=== PATIENT | female | born 1950 | race Caucasian/White ===

== ENCOUNTER → 2016-08-30 | Outpatient (CLI) | payer BC ==
[2014-06-14 16:10] VITALS: BP 140/75
[~2016-08-30] MED LIST: ACET325T9 PO; BENZ100C PO; GUAI600T47 PO; LEVO500T59 PO; POTA20TA12 PO; PRED20TA PO
--- NOTE | 2016-08-30 15:46 | KCIC ---
History: Arthralgia, medial right knee pain, fall in February 2016. Comparison: None. Findings: AP, lateral, and oblique views of the right knee performed weightbearing. No acute fracture or dislocation is identified. There is mild narrowing of the medial joint space. Small quadriceps tendon insertional enthesophyte is seen. No erosive changes are seen. No joint effusion is identified. The distal left femur demonstrates a chondroid lesion which measures about 4.5 cm in maximum dimension. Impression: 1. No acute osseous abnormality identified. 2. Mild medial compartment degeneration. 3. Chondroid lesion involving the distal left femur measuring about 4.5 cm in maximum dimension. 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 If there is focal pain, then bone scan could be performed to evaluate for more aggressive process. If no focal pain, then follow-up radiographs could be performed in 6-12 months to ensure stability. Electronically signed by: Charlie Carbajal MD (08/30/2016 3:42 PM) [id number]
== END | disposition home or self-care (01) ==
LOC: KCIC 15:15
PROVIDERS: ATTEND Internal Medicine Rheumatology
DX: M25.561 Pain in right knee (principal)
CPT/HCPCS: 73562

== ENCOUNTER → 2016-11-19 | Outpatient (CLI) | payer BC ==
[2014-06-14 16:10] VITALS: BP 140/75
--- NOTE | 2016-11-20 09:14 | KCIC ---
MR of the right knee Indication: Arthralgia. Right knee pain after a fall in February. Pain is medial. Technique: The standard multiplanar sequences are obtained. COMPARISON: Radiographs August 30, 2016 Findings: Medial meniscus: Small, blunted and distorted compatible with a degenerative tear. Lateral meniscus: Minimal blunting of free margin lateral meniscus on the single coronal slice, compatible with a possible tear, but if so it is very small. Anterior cruciate ligament: Intact Posterior cruciate ligament: Intact Medial collateral ligament: Intact. Iliotibial band: Intact. Posterolateral structures: Fibular collateral ligament, biceps tendon and popliteus tendon are intact. Extensor mechanism: Intact. Fluid: Small joint effusion. Articular cartilage -patellofemoral joint:Intact -medial compartment: Severe chondromalacia at the central weightbearing medial femoral condyle. Mild subchondral edema and cystic change. -lateral compartment:Intact Bones: Geographic bone lesion at the distal femoral meta-epiphysis, centered at the growth plate scar and extending to the roof of the intercondylar notch. Measures 3.5 cm diameter. This demonstrates a lobulated margin and is typical for a chondroid lesion in location and appearance. There is a smaller similar lesion located just lateral to this as well. No aggressive bone destruction. No evidence of acute fracture. Soft tissue: Mild anterior subcutaneous edema. Impression: 1. Medial meniscal tear. 2. Possible very small lateral meniscal tear, with blunting on a single coronal slice. 3. Primary osteoarthritis, particularly at the medial femoral condyle. 4. There are 2 chondroid lesions at the distal femur, most typically represent enchondromas, and without associated aggressive features. As stated in the recommendation provided in the radiographic report of August 30, 2016, consider obtaining a nuclear medicine bone scan if there is thought to be focal pain attributable to this lesion. Otherwise, radiographic follow-up could be obtained. Electronically signed by: Charlie Zacarias MD (11/20/2016 9:11 AM) [facility]
== END | disposition home or self-care (01) ==
LOC: KCIC MRI 16:35
PROVIDERS: ATTEND Internal Medicine Rheumatology
DX: S83.241D Other tear of medial meniscus, current injury, right knee, subsequent encounter (principal); M17.11 Unilateral primary osteoarthritis, right knee; X58.XXXD Exposure to other specified factors, subsequent encounter
CPT/HCPCS: 73721

== ENCOUNTER → 2018-01-06 | Day surgery (SDC) | payer BC ==
[~2018-01-06] MED LIST changes: +IV RINGERS,LACTATED 1000ML 1,000 ML IV SCH; +LIDOCAINE 1% PF 2 ML VIAL. ID PRN; +MIDAZOLAM HCL/PF 2 MG/2 ML VIAL. IV PRN; +PROPOFOL 40 ML IV ONE; +fentaNYL PF VIAL 100 MCG/2 ML VIAL IV PRN
--- NOTE | 2018-01-06 08:51 | PDOC1 ---
HISTORY & PHYSICAL H&P Annabel Messina [id number] 1950 12/24/2017 03:30 PM 02/24 [facility], [facility] [address] [place], [place] [id number] . [phone] Patient: Annabel Messina Date of : 1950 Date: 12/24/2017 3:30 PM Visit Type: Consult This 67 year old female presents for Screening colonoscopy. History of Present Illness: 1. Screening colonoscopy No prior screening. Risk Factors: h/o colon polyp. Pertinent negatives include abdominal pain, change in bowel habits, change in stool caliber, constipation, decreased appetite, diarrhea, melena, nausea, rectal bleeding, vomiting, weight gain and weight loss. Additional information: No family history of Crohn's/colitis, Patient has family history of colon cancer, No NSAID /ASA use and Last colonoscopy 5 yrs ago. INTAKE COMMENTS: Intake Comments: patient states she is here for a colonoscopy PROBLEM LIST: Problem Description Onset Date Chronic Clinical Status Notes Sleep apnea 01/08/2012 Y Mapped from [facility] Chronic Conditions table on 2013 by the ICD9 to SNOMED Bulk Mapping Utility. The mapped diagnosis code was Sleep apnea, 780.57, added by Clarice Doss, with responsible provider Clarice Doss MD MD. Onset date 01/08/2012; last addressed on 01/08/2013. Sarcoidosis 01/08/2012 Y Mapped from [facility] Chronic Conditions table on 2013 by the ICD9 to SNOMED Bulk Mapping Utility. 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 Onset date 01/08/2012; last addressed on 01/08/2013. Hyperlipidemia 03/09/2013 Y Mapped from [facility] Chronic Conditions table on 2013 by the ICD9 to SNOMED Bulk Mapping Utility. The mapped diagnosis code was Other and unspecified hyperlipidemia, 272.4, added by Clarice Doss, with responsible provider Clarice Doss MD MD. Onset date 03/09/2013. Benign essential hypertension 03/09/2013 Y Mapped from [facility] Chronic Conditions table on 09/13/2013 by the ICD9 to SNOMED Bulk Mapping Utility. The mapped diagnosis code was Hypertension, Benign, 401.1, added by Clarice Doss, with responsible provider Clarice Doss MD MD. Onset date 03/09/2013. Arm paresthesia, right 03/21/2015 Osteopenia 05/03/2014 GERD (gastroesophageal reflux disease) 05/03/2014 Cervical disc disease 03/08/2015 Cervical radiculopathy at C5 03/08/2015 Full examination performed 01/08/2012 Y Mapped from [facility] Chronic Conditions table on 03/23/2014 by Nomi العراقي. The mapped diagnosis code was Annual physical exam,V70.0, added by Clarice Doss , with responsible provider Clarice Doss MD MD. Onset date 01/08/2012; last addressed on 01/08/2013. DDD (degenerative disc disease), cervical 03/21/2015 PAST MEDICAL/SURGICAL HISTORY (Detailed) Disease/disorder Onset Date Management Date Comments Sarcoidosis 2009 rt rotator cuff tear 2005 Appendectomy 2011 Cholecystectomy 2009 Breast biopsy 2001 Hysterectomy 1995 Family History (Detailed) Relationship Family Member Name Age at Condition Onset Age Cause of Family history of Hypertension N Family history of Cancer, colon N Family history of Hyperlipidemia N Social History: (Detailed) The patient is right-handed. Preferred language is Montserratian. MARITAL STATUS/FAMILY/SOCIAL SUPPORT Currently unknown. Tobacco use status: Never smoked tobacco. Smoking status: Never smoker. TOBACCO CESSATION INFORMATION Date Counseled By Order Status Description Code Tobacco Cessation Information 01/08/2012 Elizabeth Prado Tobacco cessation counseling completed Tobacco cessation counseling TOBACCO/VAPING EXPOSURE There is passive smoke exposure. ALCOHOL There is no history of alcohol use. CAFFEINE The patient does not use caffeine. HOME ENVIRONMENT/SAFETY Home heating is gas. There is not a pool/spa at home. Uses seat belts. Medications (active prior to today) Medication Name Sig Description Start Date Stop Date Refilled Rx Elsewhere meloxicam 7.5 mg tablet take 1 tablet by ORAL route 2 times every day 201712/12/2017 N Lotrisone 1 %-0.05 % topical cream apply by topical route 2 times every day for 2 weeks to the affected and surrounding areas of skin in the morning and evening 12/12/2017 12/25/2017 12/12/2017 N Medication Reconciliation Medications reconciled today. Medication Reviewed Adherence Medication Name Sig Desc Elsewhere Status taking as directed meloxicam 7.5 mg tablet take 1 tablet by ORAL route 2 times every day N Verified taking as directed Lotrisone 1 %-0.05 % topical cream apply by topical route 2 times every day for 2 weeks to the affected and surrounding areas of skin in the morning and evening N Verified taking as directed meclizine 25 mg tablet take 1 tablet by oral route 3 times every day as needed N Verified Medications (Added, Continued or Stopped today) Start Date Medication Directions PRN Status PRN Reason Instruction Stop Date 12/12/2017 Lotrisone 1 %-0.05 % topical cream apply by topical route 2 times every day for 2 weeks to the affected and surrounding areas of skin in the morning and evening N 12/25/2017 12/24/2017 meclizine 25 mg tablet take 1 tablet by oral route 3 times every day as needed N 12/12/2017 meloxicam 7.5 mg tablet take 1 tablet by ORAL route 2 times every day N Allergies: Ingredient Reaction (Severity) Medication Name Comment NO KNOWN ALLERGIES Review of Systems System Neg/Pos Details Constitutional Negative Chills, Fever, Malaise, Weight gain and Weight loss. ENMT Negative Sore throat. Eyes Negative Double vision. Respiratory Negative Dyspnea and Wheezing. Cardio Negative Chest pain and Irregular heartbeat/palpitations. GI Positive See HPI. GI Negative Abdominal pain, Change in bowel habits, Change in stool caliber, Constipation, Decreased appetite, Diarrhea, Melena, Nausea, See HPI, Rectal bleeding and Vomiting. Negative Dysuria and Hematuria. Endocrine Negative Cold intolerance and Heat intolerance. Psych Negative Anxiety. Integumentary Negative Hives and Rash. MS Negative Joint pain. Aurelio/Lymph Negative Easy bleeding and Easy bruising. Allergic/Immuno Negative Food allergies. Vital Signs Time BP mm/Hg Pulse /min Resp /min Temp F Ht ft Ht in Ht cm Wt lb Wt kg BMI kg/ m2 BSA m2 O2 Sat% 3:28 PM 126/62 117 14 98.4 5.0 5.50 166.37 262.00 118.841 42.94 2.34 91 Measured By Time Measured by 3:28 PM Ivda Swygert PHYSICAL EXAM: Exam Findings Details Constitutional Normal Well developed. Eyes Normal Conjunctiva - Right: Normal, Left: Normal. Sclera - Right: Normal, Left: Normal. Nasopharynx Normal Lips/teeth/gums - Normal. Neck Exam Normal Inspection - Normal. Thyroid gland - Normal. Respiratory Normal Inspection - Normal. Auscultation - Normal. Cardiovascular Normal Regular rate and rhythm. No murmurs, gallops, or rubs. Abdomen Normal Inspection - Normal. Anterior palpation - No guarding. No abdominal tenderness. No hepatic enlargement. No spleen enlargement. No hernia. No Ascites. Skin Normal Inspection - Normal. Extremity Normal No edema. Psychiatric Normal Orientation - Oriented to time, place, person & situation. Appropriate mood and affect. Assessment/Plan # Detail Type Description 1. Assessment Family history of colon cancer (Z80.0). Patient Plan Await colonoscopy. 2. Assessment History of colon polyps (Z86.010). Patient Plan schedule colonoscopy at Active Patient Care Team Members Name Contact Agency Type Support Role Relationship Active Date Inactive Date Specialty Clarice Doss MD Patient provider PCP Internal Med Document Electronically signed: Tee Rodriguez MD 12/24/2017 04:16 PM Document generated by: Tee Rodrigeuz 12/24/2017 Dipika Villar MD, Family Practice; Charlie Stinson MD Internal Medicine; Clarice Doss MD, Internal Medicine; Concepcion Rodriguez MD Internal Medicine; Tee Rodriguez MD, Gastroenterology; Shiva Richards MD, Rheumatology, Ruthann Haresh LITTLEJOHN ------ 01/06/18 Patient seen and examined. No change in H&P. TEE RODRIGUEZ MD Jan 06, 2018 08:51
[2018-01-06 09:45] VITALS: BP 125/60
== END | disposition home or self-care (01) ==
LOC: SURG 08:24
PROVIDERS: ATTEND Internal Medicine Gastroenterology
DX: Z12.11 Encounter for screening for malignant neoplasm of colon (principal); K57.30 Diverticulosis of large intestine without perforation or abscess without bleeding; I10 Essential (primary) hypertension; G47.30 Sleep apnea, unspecified; E78.5 Hyperlipidemia, unspecified; K21.9 Gastro-esophageal reflux disease without esophagitis; M85.80 Other specified disorders of bone density and structure, unspecified site; M50.122 Cervical disc disorder at C5-C6 level with radiculopathy; Z90.49 Acquired absence of other specified parts of digestive tract; Z90.710 Acquired absence of both cervix and uterus; Z98.890 Other specified postprocedural states; Z82.49 Family history of ischemic heart disease and other diseases of the circulatory system; Z83.49 Family history of other endocrine, nutritional and metabolic diseases; Z79.899 Other long term (current) drug therapy; Z86.010 Personal history of colon polyps; Z80.0 Family history of malignant neoplasm of digestive organs
CPT/HCPCS: 45378; J2704

== ENCOUNTER → 2018-08-28 | Outpatient (CLI) | payer BC ==
[2018-01-06 09:45] VITALS: BP 125/60
[~2018-08-28] MED LIST changes: +IOHEXOL 300 MG/ML 100ML VIAL. IV ONE; -IV RINGERS,LACTATED 1000ML 1,000 ML IV SCH; -LIDOCAINE 1% PF 2 ML VIAL. ID PRN; -MIDAZOLAM HCL/PF 2 MG/2 ML VIAL. IV PRN; -PROPOFOL 40 ML IV ONE; -fentaNYL PF VIAL 100 MCG/2 ML VIAL IV PRN
--- NOTE | 2018-08-28 13:35 | RAD ---
Examination: CT CHEST W/CONTRAST History: Sarcoidosis Comparison/Correlation: 12/04/2015 CT chest without contrast Findings: Axial images of chest were obtained without contrast. Sagittal and coronal reformatted images are provided. Linear scarring involving the lingula and anterior left lung base is present similar to the prior exam. No suspicious pulmonary nodules or masses. Calcified granuloma involves the lateral left lung base. Several noncalcified nodules bilaterally are present measuring less than 0.3 cm. No suspicious new nodule. Multiple right paratracheal and left perihilar lymph nodes are present and borderline in size. Subcarinal lymph node measuring up to 1.5 cm thorax diameter is stable. No infiltrate or pleural effusion. Small hiatal hernia is present. Cholecystectomy is noted. Diverticulosis is present. Left renal superior pole lesion which is too small to characterize probably representing a cyst is present measuring less than 1 cm diameter. Impression: No change in thoracic lymph nodes in this patient with known history of sarcoidosis. No suspicious infiltrate. No suspicious pulmonary nodule in the interval. Hiatal hernia PQRS Compliance Statement: One or more of the following individualized dose reduction techniques were utilized for this examination: 1. Automated exposure control 2. Adjustment of the mA and/or kV according to patient size 3. Use of iterative reconstruction technique Electronically signed by: Ryan Dias MD (08/28/2018 1:31 PM) [facility]
== END | disposition home or self-care (01) ==
LOC: CT 10:57
PROVIDERS: ATTEND Internal Medicine Critical Care Medicine
DX: K44.9 Diaphragmatic hernia without obstruction or gangrene (principal); K57.90 Diverticulosis of intestine, part unspecified, without perforation or abscess without bleeding; J84.10 Pulmonary fibrosis, unspecified; J98.4 Other disorders of lung; N28.89 Other specified disorders of kidney and ureter; D86.9 Sarcoidosis, unspecified; Z88.5 Allergy status to narcotic agent; Z90.49 Acquired absence of other specified parts of digestive tract
CPT/HCPCS: 71260; Q9967

== ENCOUNTER 2020-01-27 10:09 | Inpatient (IN) | payer BC, MEDICARE ==
[~2020-01-27] VITALS: Ht 170.2 cm; Wt 109.9 kg
[~2020-01-27 10:09] MED LIST changes: -IOHEXOL 300 MG/ML 100ML VIAL. IV ONE
[2020-01-27] MEDS ORDERED: DEXAMETHASONE SOD PHOS 4 MG/ML VIAL IVP ONE (11:00)
[2020-01-27] MEDS ORDERED: cefTRIAXone IV Push 1 GM VIAL. IVP ONE (11:00)
[2020-01-27] MEDS ORDERED: ACETAMINOPHEN 500 MG TABLET PO ONE (11:00)
--- NOTE | 2020-01-27 11:17 | RAD ---
CHEST AP ONLY History: Reason: cough, covid? / Spl. Instructions: / History: Comparison: June 14, 2014 Findings: Ill-defined mid and bibasilar opacities. Low lung volumes. No pleural effusion. No pneumothorax. Enlarged cardiac size, unchanged. Impression: 1. Ill-defined bilateral pulmonary opacities, may represent atelectasis or infiltrates including viral pneumonia. Recommend follow-up. 2. Enlarged cardiac size, unchanged. Electronically signed by: El Sanchez DO (01/27/2020 11:10 AM) [id number]
[2020-01-27 12:00] LABS: BASO % 0 % (0-3); EOS % 0 % (0-3); HEMATOCRIT 39.7 % (36.0-47.0); HEMOGLOBIN 13.1 g/dL (12.0-15.5); LYMPH # 0.8 x10^3/uL (1.0-4.8); LYMPH % 13 % (24-48); MEAN CORPUSCULAR HEMOGLOBIN 28 pg (25-35); MEAN CORPUSCULAR HGB CONC 33 g/dL (31-37); MEAN CORPUSCULAR VOLUME 85 fL (79-100); MONO # 0.6 x10^3/uL (0.0-1.1); MONO % 10 % (0-9); NEUT # 4.9 x10^3/uL (1.8-7.7); NEUT % 77 % (31-73); PLATELET COUNT 161 x10^3/uL (140-400); RED CELL DISTRIBUTION WIDTH 14.3 % (11.5-14.5); WHITE BLOOD COUNT 6.4 x10^3/uL (4.0-11.0)
--- NOTE | 2020-01-27 12:03 | EKG ---
[facility] [address] [place] [address] Test Date: 2020-01-27 Test Time: 10:31:23 Pat Name: KENDALL CABRERA Department: Room: Gender: F Clinical Laboratory Technologist: : 1950 Requested By: ALTHEA ANGUIANO Order Number: [id number] Reading MD: Measurements Intervals [place] Rate: 99 P: 59 [place]: 144 QRS: -18 QRSD: 84 T: 14 QT: 386 QTc: 501 Interpretive Statements SINUS RHYTHM LEFTWARD AXIS LOW LIMB LEAD VOLTAGE QRS(T) CONTOUR ABNORMALITY CONSISTENT WITH INFERIOR INFARCT AGE UNDETERMINED ST ABNORMALITY, POSSIBLE LATERAL SUBENDOCARDIAL INJURY ABNORMAL ECG RI6.01 No previous ECG available for comparison
[2020-01-27 12:15] LABS: CALCIUM 8.7 mg/dL (8.5-10.1); CREATININE 0.9 mg/dL (0.6-1.0); GFR 62.5; POTASSIUM 3.2 mmol/L (3.5-5.1)
[2020-01-27 12:21] LABS: ALBUMIN 3.4 g/dL (3.4-5.0); C-REACTIVE PROTEIN 24.2 mg/L (0-3.3); TOTAL BILIRUBIN 0.4 mg/dL (0.2-1.0); TOTAL PROTEIN 6.9 g/dL (6.4-8.2)
--- NOTE | 2020-01-27 15:50 | ED.ADGEN ---
Past Medical History Past Medical History: Other Additional Past Medical Histor: Sarcoidosis Past Surgical History: Appendectomy, Cholecystectomy, , Hysterectomy, Other Additional Past Surgical Histo: Rotator Cuff, Finger Smoking Status: Never Smoker Alcohol Use: Rarely Drug Use: None General Adult EDM: Chief Complaint: SHORTNESS OF BREATH HPI: HPI: Patient is a 69-year-old female who presents to the emergency room with known coronavirus. Patient was diagnosed over weekend. She has been on steroids and doxycycline for the last several days. She has had increased cough and shortness of breath over the last 24 hours. She is now having a difficult time getting around and catching her breath. She states the cough causes chest pain that feels like aching. She has been having fevers at home. Review of Systems: Review of Systems: Complete ROS is negative unless otherwise documented in HPI Current Medications: Current Medications Medications (Trade) Dose Ordered Sig/Phil Start Time Stop Time Status Last Admin Dose Admin Acetaminophen (Tylenol) 1,000 mg 1X ONCE 01/27/20 11:00 01/27/20 11:01 DC 01/27/20 11:51 1,000 MG Ceftriaxone Sodium (Rocephin) 1 gm 1X ONCE 01/27/20 11:00 01/27/20 11:01 DC 01/27/20 11:51 1 GM Dexamethasone Sodium Phosphate (Decadron) 10 mg 1X ONCE 01/27/20 11:00 01/27/20 11:01 DC 01/27/20 11:51 10 MG Allergies: Allergies: Allergies Coded Allergies Type Severity Reaction Last Updated Verified hydrocodone Allergy Intermediate RASH 01/06/18 Yes Physical Exam: PE: General: Awake, alert, ill-appearing. Well Nourished, well hydrated. Cooperative HEENT: Atraumatic, EOMI, PERRL, airway patent, moist oral mucosa Neck: Supple, trachea midline Respiratory: Decreased breath sounds bilaterally, crackles in the right base, normal effort CV: RRR, no murmur, cap refill <2 GI: Soft, nondistended, nontender, no masses MSK: No obvious deformities Skin: Warm, dry, intact Neuro: A&O x3, speech NL, sensory and motor grossly intact, no focal deficits Psych: Normal affect, normal mood, not suicidal or homicidal Current Patient Data: Labs: Laboratory Tests Test 12/3/20 11:31 White Blood Count 6.4 x10^3/uL (4.0-11.0) Red Blood Count 4.70 x10^6/uL (3.50-5.40) Hemoglobin 13.1 g/dL (12.0-15.5) Hematocrit 39.7 % (36.0-47.0) Mean Corpuscular Volume 85 fL (79-100) Mean Corpuscular Hemoglobin 28 pg (25-35) Mean Corpuscular Hemoglobin Concent 33 g/dL (31-37) Red Cell Distribution Width 14.3 % (11.5-14.5) Platelet Count 161 x10^3/uL (140-400) Neutrophils (%) (Auto) 77 % (31-73) H Lymphocytes (%) (Auto) 13 % (24-48) L Monocytes (%) (Auto) 10 % (0-9) H Eosinophils (%) (Auto) 0 % (0-3) Basophils (%) (Auto) 0 % (0-3) Neutrophils # (Auto) 4.9 x10^3/uL (1.8-7.7) Lymphocytes # (Auto) 0.8 x10^3/uL (1.0-4.8) L Monocytes # (Auto) 0.6 x10^3/uL (0.0-1.1) Eosinophils # (Auto) 0.0 x10^3/uL (0.0-0.7) Basophils # (Auto) 0.0 x10^3/uL (0.0-0.2) D-Dimer (Aide) 1.05 ug/mlFEU (0.00-0.50) H Sodium Level 142 mmol/L (136-145) Potassium Level 3.2 mmol/L (3.5-5.1) L Chloride Level 103 mmol/L (98-107) Carbon Dioxide Level 26 mmol/L (21-32) Anion Gap 13 (6-14) Blood Urea Nitrogen 14 mg/dL (7-20) Creatinine 0.9 mg/dL (0.6-1.0) Estimated GFR (Cockcroft-Gault) 62.5 BUN/Creatinine Ratio 16 (6-20) Glucose Level 92 mg/dL (70-99) Calcium Level 8.7 mg/dL (8.5-10.1) Total Bilirubin 0.4 mg/dL (0.2-1.0) Aspartate Amino Transferase (AST) 82 U/L (15-37) H Alanine Aminotransferase (ALT) 152 U/L (14-59) H Alkaline Phosphatase 79 U/L (46-116) Lactate Dehydrogenase 238 U/L (81-234) H Creatine Kinase 321 U/L (26-192) H Troponin I Quantitative < 0.017 ng/mL (0.000-0.055) C-Reactive Protein, Quantitative 24.2 mg/L (0-3.3) H FH-Fxr-V-Type Natriuretic Peptide 46 pg/mL (0-124) Total Protein 6.9 g/dL (6.4-8.2) Albumin 3.4 g/dL (3.4-5.0) Albumin/Globulin Ratio 1.0 (1.0-1.7) Laboratory Tests 01/27/20 11:31 Laboratory Tests 01/27/20 11:31 Vital Signs: Vital Signs Date Time Temp Pulse Resp B/P (MAP) Pulse Ox O2 Delivery O2 Flow Rate FiO2 01/27/20 12:50 97 146/70 (95) 95 Nasal Cannula 2.0 01/27/20 11:50 18 01/27/20 10:09 102.7 102.7 EKG: EKG: [] Heart Score: Risk Factors: Risk Factors: DM, Current or recent (<one month) smoker, HTN, HLP, family history of CAD, obesity. Risk Scores: Score 0 - 3: 2.5% MACE over next 6 weeks - Discharge Home Score 4 - 6: 20.3% MACE over next 6 weeks - Admit for Clinical Observation Score 7 - 10: 72.7% MACE over next 6 weeks - Early Invasive Strategies Radiology/Procedures: Radiology/Procedures: [] Course & Med Decision Making: Course & Med Decision Making Pertinent Labs and Imaging studies reviewed. (See chart for details) Patient is a 69-year-old female who presents to the emergency room with cough, shortness of breath, hypoxia. At this time there is concern for the novel coronavirus 19. Patient's risk factors include age, obesity. Risk stratifying work-up was ordered including chest x-ray, d-dimer, CPK, CRP, LDH, troponin, fe rritin, CBC, CMP. At this time, patients labs, vitals, and exam are significant for hypoxia. Due to patient's risk and clinical picture, they will need to be admitted at this time. IVFs will be limited due to concern for fluid overload in COVID-19 patients. Patient will be given empiric antibiotics due to infiltrates and risk of co-bacterial infection. Further treatment will be dictated by the inpatient team. Dragon Disclaimer: Dragon Disclaimer: This electronic medical record was generated, in whole or in part, using a voice recognition dictation system. Departure Departure Impression: Primary Impression: Community acquired pneumonia Additional Impression: Coronavirus infection Disposition: ADMITTED INPT THIS HOSP Condition: STABLE Referrals: WALDO KUMAR MD (PCP) Scripts Dexamethasone (Decadron) 4 Mg Tablet 4 MG PO [id number] for steroid for 7 Days, #7 TAB Prov: WALDO KUMAR MD 02/02/20 Doxycycline Hyclate (DOXYCYCLINE HYCLATE) 100 Mg Tablet 100 MG PO BID for pneumonia for 7 Days, #14 TAB Prov: WALDO KUMAR MD 02/02/20 Problem Qualifiers ALTHEA ANGUIANO MD Jan 27, 2020 15:49
--- NOTE | 2020-01-27 16:55 | PDOC ---
PULMONARY PROGRESS NOTES DATE: 01/27/20 TIME: 16:54 Vitals Vital Signs Date Time Temp Pulse Resp B/P (MAP) Pulse Ox O2 Delivery O2 Flow Rate FiO2 01/27/20 12:50 97 146/70 (95) 95 Nasal Cannula 2.0 01/27/20 11:50 18 01/27/20 10:09 102.7 102.7 General: Alert Lungs: Clear Cardiovascular: S1, S2 Abdomen: Soft, Non-tender Extremities: No Edema Labs Laboratory Tests Test 01/27/20 11:31 White Blood Count 6.4 x10^3/uL (4.0-11.0) Red Blood Count 4.70 x10^6/uL (3.50-5.40) Hemoglobin 13.1 g/dL (12.0-15.5) Hematocrit 39.7 % (36.0-47.0) Mean Corpuscular Volume 85 fL (79-100) Mean Corpuscular Hemoglobin 28 pg (25-35) Mean Corpuscular Hemoglobin Concent 33 g/dL (31-37) Red Cell Distribution Width 14.3 % (11.5-14.5) Platelet Count 161 x10^3/uL (140-400) Neutrophils (%) (Auto) 77 % (31-73) Lymphocytes (%) (Auto) 13 % (24-48) Monocytes (%) (Auto) 10 % (0-9) Eosinophils (%) (Auto) 0 % (0-3) Basophils (%) (Auto) 0 % (0-3) Neutrophils # (Auto) 4.9 x10^3/uL (1.8-7.7) Lymphocytes # (Auto) 0.8 x10^3/uL (1.0-4.8) Monocytes # (Auto) 0.6 x10^3/uL (0.0-1.1) Eosinophils # (Auto) 0.0 x10^3/uL (0.0-0.7) Basophils # (Auto) 0.0 x10^3/uL (0.0-0.2) D-Dimer (Aide) 1.05 ug/mlFEU (0.00-0.50) Sodium Level 142 mmol/L (136-145) Potassium Level 3.2 mmol/L (3.5-5.1) Chloride Level 103 mmol/L (98-107) Carbon Dioxide Level 26 mmol/L (21-32) Anion Gap 13 (6-14) Blood Urea Nitrogen 14 mg/dL (7-20) Creatinine 0.9 mg/dL (0.6-1.0) Estimated GFR (Cockcroft-Gault) 62.5 BUN/Creatinine Ratio 16 (6-20) Glucose Level 92 mg/dL (70-99) Calcium Level 8.7 mg/dL (8.5-10.1) Total Bilirubin 0.4 mg/dL (0.2-1.0) Aspartate Amino Transf (AST/SGOT) 82 U/L (15-37) Alanine Aminotransferase (ALT/SGPT) 152 U/L (14-59) Alkaline Phosphatase 79 U/L (46-116) Lactate Dehydrogenase 238 U/L (81-234) Creatine Kinase 321 U/L (26-192) Troponin I Quantitative < 0.017 ng/mL (0.000-0.055) C-Reactive Protein, Quantitative 24.2 mg/L (0-3.3) ME-Ufd-C-Type Natriuretic Peptide 46 pg/mL (0-124) Total Protein 6.9 g/dL (6.4-8.2) Albumin 3.4 g/dL (3.4-5.0) Albumin/Globulin Ratio 1.0 (1.0-1.7) Laboratory Tests Test 01/27/20 11:31 White Blood Count 6.4 x10^3/uL (4.0-11.0) Red Blood Count 4.70 x10^6/uL (3.50-5.40) Hemoglobin 13.1 g/dL (12.0-15.5) Hematocrit 39.7 % (36.0-47.0) Mean Corpuscular Volume 85 fL (79-100) Mean Corpuscular Hemoglobin 28 pg (25-35) Mean Corpuscular Hemoglobin Concent 33 g/dL (31-37) Red Cell Distribution Width 14.3 % (11.5-14.5) Platelet Count 161 x10^3/uL (140-400) Neutrophils (%) (Auto) 77 % (31-73) Lymphocytes (%) (Auto) 13 % (24-48) Monocytes (%) (Auto) 10 % (0-9) Eosinophils (%) (Auto) 0 % (0-3) Basophils (%) (Auto) 0 % (0-3) Neutrophils # (Auto) 4.9 x10^3/uL (1.8-7.7) Lymphocytes # (Auto) 0.8 x10^3/uL (1.0-4.8) Monocytes # (Auto) 0.6 x10^3/uL (0.0-1.1) Eosinophils # (Auto) 0.0 x10^3/uL (0.0-0.7) Basophils # (Auto) 0.0 x10^3/uL (0.0-0.2) D-Dimer (Aide) 1.05 ug/mlFEU (0.00-0.50) Sodium Level 142 mmol/L (136-145) Potassium Level 3.2 mmol/L (3.5-5.1) Chloride Level 103 mmol/L (98-107) Carbon Dioxide Level 26 mmol/L (21-32) Anion Gap 13 (6-14) Blood Urea Nitrogen 14 mg/dL (7-20) Creatinine 0.9 mg/dL (0.6-1.0) Estimated GFR (Cockcroft-Gault) 62.5 BUN/Creatinine Ratio 16 (6-20) Glucose Level 92 mg/dL (70-99) Calcium Level 8.7 mg/dL (8.5-10.1) Total Bilirubin 0.4 mg/dL (0.2-1.0) Aspartate Amino Transf (AST/SGOT) 82 U/L (15-37) Alanine Aminotransferase (ALT/SGPT) 152 U/L (14-59) Alkaline Phosphatase 79 U/L (46-116) Lactate Dehydrogenase 238 U/L (81-234) Creatine Kinase 321 U/L (26-192) Troponin I Quantitative < 0.017 ng/mL (0.000-0.055) C-Reactive Protein, Quantitative 24.2 mg/L (0-3.3) QW-Fzy-D-Type Natriuretic Peptide 46 pg/mL (0-124) Total Protein 6.9 g/dL (6.4-8.2) Albumin 3.4 g/dL (3.4-5.0) Albumin/Globulin Ratio 1.0 (1.0-1.7) Medications Active Scripts Medications Dose Route/Sig Max Daily Dose Days Date Category Tylenol (Acetaminophen) 325 Mg Tablet 650 Mg PO PRN Q6HRS PRN 06/14/14 Rx Impression . Full note dictated Acute hypoxemic respiratory failure secondary to COVID-19 viral pneumonia See orders Spoke with pharmacy will initiate remdesNEISHA Villanueva MD Jan 27, 2020 16:55
--- NOTE | 2020-01-27 17:11 | CONS ---
DATE OF CONSULTATION: 01/27/2020 ATTENDING PHYSICIAN: Dr. Doss. REASON FOR CONSULTATION: The patient is seen in pulmonary consultation at the request of Dr. Doss for acute hypoxemic respiratory distress, abnormal x-ray, positive COVID-19. HISTORY OF PRESENT ILLNESS: The patient is a 69-year-old that was seen in the urgent care center several days ago, she had some fever, increasing shortness of breath. She was tested positive. She was given some prednisone, doxycycline and cough suppressants. The patient failed outpatient treatment. She presented to the Emergency Room with increasing shortness of breath and oxygen requirement. She normally does not wear oxygen. She was seen in the Emergency Department. She denies any known exposures. PAST MEDICAL HISTORY: Remarkable for sarcoid, which has been pretty much under control for a prolonged period of time. She was last seen in the office by my partner, Dr. Vasquez. She has had previous biopsy-proven sarcoid. She has had obstructive sleep apnea, uses CPAP at home. Otherwise, no other past medical history. PAST SURGICAL HISTORY: Previous biopsy for a sarcoid, laparoscopic cholecystectomy, breast biopsy, rotator cuff repair. ALLERGIES: HYDROCODONE CAUSES NAUSEA AND EMESIS. SOCIAL HISTORY: She quit tobacco in 1983. FAMILY HISTORY: No family history of lung disorders. CURRENT MEDICATION: List was reviewed. REVIEW OF SYSTEMS: As indicated above, otherwise, a 10-point system was reviewed and negative. CONSTITUTIONAL: Positive for fever. EYES: No change in visual acuity. HENT: No nasal congestion or sore throat. PULMONARY: As indicated above. CARDIOVASCULAR: No chest pain. No pressure. GASTROINTESTINAL: No nausea, vomiting, diarrhea. GENITOURINARY: No dysuria or frequency. MUSCULOSKELETAL: No localized muscle aches or joint pains. SKIN: No new skin rashes. NEUROLOGIC: No headaches, diplopia or blurred vision. PHYSICAL EXAMINATION: The patient was seen during the COVID-19 pandemic. She was seen in the Emergency Department. On visual inspection and examination temperature was 102.7. She was in no significant respiratory distress. No paroxysmal breathing pattern. ABDOMEN: Obese. NEUROLOGICAL: The patient was awake, alert, following commands. LABORATORY DATA: Reviewed. White count was normal with lymphopenia. Electrolytes were noted. Potassium was low. AST and ALT were elevated. LDH was elevated. Troponin was not elevated. C-reactive protein was elevated. Chest x-ray was reviewed. There is bilateral pulmonary infiltrates. There is cardiomegaly. IMPRESSION: 1. Acute hypoxemic respiratory failure secondary to COVID-19 viral pneumonia. 2. COVID-19 viral pneumonia, the patient failed outpatient treatment, now hypoxic, increasing symptoms. 3. Abnormal x-ray, possible bacterial pneumonia, gram-positive and gram-negative. 4. Morbid obesity. 5. History of sarcoid. 6. Obstructive sleep apnea. 7. Fever secondary to above. PLAN: 1. We will initiate remdesivir. 2. Continue steroids. 3. Empiric antibiotics. 4. DVT prophylaxis. 5. Oxygen supplementation. I do appreciate the privilege in sharing in the patient's care. Total cumulative critical care time of 40 minutes from 4:06 p.m. to 4:46 p.m. NEISHA MORALES MD DR: LORA/ayesha JOB#: [id number] / [id number]
[2020-01-27] MEDS ORDERED: POTASSIUM CHLORIDE 20 MEQ TABLET.ER. PO ONE (18:00)
[2020-01-27] MEDS ORDERED: REMDESIVIR LOAD in IV NORMAL SALINE 250ML TV IV ONE (18:00)
[2020-01-27] MEDS: IV NORMAL SALINE 1000ML BAG 1,000 ML IV SCH (18:18)
[2020-01-27] MEDS: ZINC SULFATE 220 MG CAPSULE. PO SCH (18:19)
[2020-01-27] MEDS: ASCORBIC ACID 1,000 MG TABLET PO SCH (18:20)
[2020-01-27] MEDS: IPRATROPIUM/ALBUTEROL 20/100mcg/INH INHALER. INH SCH (18:26)
--- NOTE | 2020-01-27 20:00 | NUR ---
Admit from ER. Has had cough since Thanksgiving, becoming worse w/ mild SOA. [facility] called patient while she was in [facility] ER and gave her the + result of swab.
[2020-01-27 20:09] VITALS: BP 119/56
[2020-01-27] MEDS: DOXYCYCLINE HYCLATE 100 MG TABLET PO SCH (21:22)
[2020-01-27] MEDS: ENOXAPARIN 40 MG/0.4 ML SYRINGE. SQ SCH (21:26)
[2020-01-27 23:00] VITALS: BP 123/69
[2020-01-28 03:00] VITALS: BP 123/68
[2020-01-28] MEDS: IV NORMAL SALINE 1000ML BAG 1,000 ML IV SCH ×2 (04:00→14:08)
[2020-01-28 04:43] LABS: BASO % 0 % (0-3); EOS % 0 % (0-3); HEMATOCRIT 35.8 % (36.0-47.0); HEMOGLOBIN 11.8 g/dL (12.0-15.5); LYMPH # 0.9 x10^3/uL (1.0-4.8); LYMPH % 19 % (24-48); MEAN CORPUSCULAR HEMOGLOBIN 28 pg (25-35); MEAN CORPUSCULAR HGB CONC 33 g/dL (31-37); MEAN CORPUSCULAR VOLUME 86 fL (79-100); MONO # 0.5 x10^3/uL (0.0-1.1); MONO % 12 % (0-9); NEUT # 3.3 x10^3/uL (1.8-7.7); NEUT % 70 % (31-73); PLATELET COUNT 154 x10^3/uL (140-400); RED BLOOD COUNT 4.17 x10^6/uL (3.50-5.40); RED CELL DISTRIBUTION WIDTH 14.7 % (11.5-14.5); WHITE BLOOD COUNT 4.7 x10^3/uL (4.0-11.0)
[2020-01-28 05:01] LABS: CALCIUM 8.2 mg/dL (8.5-10.1); CREATININE 0.7 mg/dL (0.6-1.0); GFR 83.5; POTASSIUM 3.8 mmol/L (3.5-5.1)
[2020-01-28 07:00] VITALS: BP 114/58
[2020-01-28] MEDS: IPRATROPIUM/ALBUTEROL 20/100mcg/INH INHALER. INH SCH ×3 (08:35→16:00)
[2020-01-28] MEDS: ENOXAPARIN 40 MG/0.4 ML SYRINGE. SQ SCH ×2 (08:36→22:12)
[2020-01-28] MEDS: DEXAMETHASONE 4 MG TABLET PO SCH (08:36)
[2020-01-28] MEDS: ASCORBIC ACID 1,000 MG TABLET PO SCH ×3 (08:36→22:11)
[2020-01-28] MEDS: DOXYCYCLINE HYCLATE 100 MG TABLET PO SCH ×2 (08:36→22:11)
[2020-01-28] MEDS: ZINC SULFATE 220 MG CAPSULE. PO SCH (08:36)
[2020-01-28] MEDS: cefTRIAXone IV Push 1 GM VIAL. IVP SCH (08:37)
--- NOTE | 2020-01-28 08:42 | PDOC ---
PULMONARY PROGRESS NOTES DATE: 01/28/20 TIME: 08:42 Subjective Patient feels about the same a slightly better no chest pain no pressure cough persist Vitals Vital Signs Date Time Temp Pulse Resp B/P (MAP) Pulse Ox O2 Delivery O2 Flow Rate FiO2 01/28/20 03:00 96.8 79 16 123/68 (86) 93 Nasal Cannula 6.0 96.8 ROS: No Nausea, No Chest Pain, No Abdominal Pain, No Increase Cough General: Alert Lungs: Clear Cardiovascular: S1, S2 Abdomen: Soft, Non-tender Extremities: No Edema Skin: Warm Labs Laboratory Tests Test 01/27/20 11:31 01/28/20 04:00 White Blood Count 6.4 x10^3/uL (4.0-11.0) 4.7 x10^3/uL (4.0-11.0) Red Blood Count 4.70 x10^6/uL (3.50-5.40) 4.17 x10^6/uL (3.50-5.40) Hemoglobin 13.1 g/dL (12.0-15.5) 11.8 g/dL (12.0-15.5) Hematocrit 39.7 % (36.0-47.0) 35.8 % (36.0-47.0) Mean Corpuscular Volume 85 fL (79-100) 86 fL (79-100) Mean Corpuscular Hemoglobin 28 pg (25-35) 28 pg (25-35) Mean Corpuscular Hemoglobin Concent 33 g/dL (31-37) 33 g/dL (31-37) Red Cell Distribution Width 14.3 % (11.5-14.5) 14.7 % (11.5-14.5) Platelet Count 161 x10^3/uL (140-400) 154 x10^3/uL (140-400) Neutrophils (%) (Auto) 77 % (31-73) 70 % (31-73) Lymphocytes (%) (Auto) 13 % (24-48) 19 % (24-48) Monocytes (%) (Auto) 10 % (0-9) 12 % (0-9) Eosinophils (%) (Auto) 0 % (0-3) 0 % (0-3) Basophils (%) (Auto) 0 % (0-3) 0 % (0-3) Neutrophils # (Auto) 4.9 x10^3/uL (1.8-7.7) 3.3 x10^3/uL (1.8-7.7) Lymphocytes # (Auto) 0.8 x10^3/uL (1.0-4.8) 0.9 x10^3/uL (1.0-4.8) Monocytes # (Auto) 0.6 x10^3/uL (0.0-1.1) 0.5 x10^3/uL (0.0-1.1) Eosinophils # (Auto) 0.0 x10^3/uL (0.0-0.7) 0.0 x10^3/uL (0.0-0.7) Basophils # (Auto) 0.0 x10^3/uL (0.0-0.2) 0.0 x10^3/uL (0.0-0.2) D-Dimer (Aide) 1.05 ug/mlFEU (0.00-0.50) Sodium Level 142 mmol/L (136-145) 141 mmol/L (136-145) Potassium Level 3.2 mmol/L (3.5-5.1) 3.8 mmol/L (3.5-5.1) Chloride Level 103 mmol/L (98-107) 106 mmol/L (98-107) Carbon Dioxide Level 26 mmol/L (21-32) 25 mmol/L (21-32) Anion Gap 13 (6-14) 10 (6-14) Blood Urea Nitrogen 14 mg/dL (7-20) 15 mg/dL (7-20) Creatinine 0.9 mg/dL (0.6-1.0) 0.7 mg/dL (0.6-1.0) Estimated GFR (Cockcroft-Gault) 62.5 83.5 BUN/Creatinine Ratio 16 (6-20) Glucose Level 92 mg/dL (70-99) 115 mg/dL (70-99) Calcium Level 8.7 mg/dL (8.5-10.1) 8.2 mg/dL (8.5-10.1) Total Bilirubin 0.4 mg/dL (0.2-1.0) Aspartate Amino Transf (AST/SGOT) 82 U/L (15-37) Alanine Aminotransferase (ALT/SGPT) 152 U/L (14-59) Alkaline Phosphatase 79 U/L (46-116) Lactate Dehydrogenase 238 U/L (81-234) Creatine Kinase 321 U/L (26-192) Troponin I Quantitative < 0.017 ng/mL (0.000-0.055) C-Reactive Protein, Quantitative 24.2 mg/L (0-3.3) CA-Pei-Q-Type Natriuretic Peptide 46 pg/mL (0-124) Total Protein 6.9 g/dL (6.4-8.2) Albumin 3.4 g/dL (3.4-5.0) Albumin/Globulin Ratio 1.0 (1.0-1.7) Laboratory Tests Test 01/27/20 11:31 01/28/20 04:00 White Blood Count 6.4 x10^3/uL (4.0-11.0) 4.7 x10^3/uL (4.0-11.0) Red Blood Count 4.70 x10^6/uL (3.50-5.40) 4.17 x10^6/uL (3.50-5.40) Hemoglobin 13.1 g/dL (12.0-15.5) 11.8 g/dL (12.0-15.5) Hematocrit 39.7 % (36.0-47.0) 35.8 % (36.0-47.0) Mean Corpuscular Volume 85 fL (79-100) 86 fL (79-100) Mean Corpuscular Hemoglobin 28 pg (25-35) 28 pg (25-35) Mean Corpuscular Hemoglobin Concent 33 g/dL (31-37) 33 g/dL (31-37) Red Cell Distribution Width 14.3 % (11.5-14.5) 14.7 % (11.5-14.5) Platelet Count 161 x10^3/uL (140-400) 154 x10^3/uL (140-400) Neutrophils (%) (Auto) 77 % (31-73) 70 % (31-73) Lymphocytes (%) (Auto) 13 % (24-48) 19 % (24-48) Monocytes (%) (Auto) 10 % (0-9) 12 % (0-9) Eosinophils (%) (Auto) 0 % (0-3) 0 % (0-3) Basophils (%) (Auto) 0 % (0-3) 0 % (0-3) Neutrophils # (Auto) 4.9 x10^3/uL (1.8-7.7) 3.3 x10^3/uL (1.8-7.7) Lymphocytes # (Auto) 0.8 x10^3/uL (1.0-4.8) 0.9 x10^3/uL (1.0-4.8) Monocytes # (Auto) 0.6 x10^3/uL (0.0-1.1) 0.5 x10^3/uL (0.0-1.1) Eosinophils # (Auto) 0.0 x10^3/uL (0.0-0.7) 0.0 x10^3/uL (0.0-0.7) Basophils # (Auto) 0.0 x10^3/uL (0.0-0.2) 0.0 x10^3/uL (0.0-0.2) D-Dimer (Aide) 1.05 ug/mlFEU (0.00-0.50) Sodium Level 142 mmol/L (136-145) 141 mmol/L (136-145) Potassium Level 3.2 mmol/L (3.5-5.1) 3.8 mmol/L (3.5-5.1) Chloride Level 103 mmol/L (98-107) 106 mmol/L (98-107) Carbon Dioxide Level 26 mmol/L (21-32) 25 mmol/L (21-32) Anion Gap 13 (6-14) 10 (6-14) Blood Urea Nitrogen 14 mg/dL (7-20) 15 mg/dL (7-20) Creatinine 0.9 mg/dL (0.6-1.0) 0.7 mg/dL (0.6-1.0) Estimated GFR (Cockcroft-Gault) 62.5 83.5 BUN/Creatinine Ratio 16 (6-20) Glucose Level 92 mg/dL (70-99) 115 mg/dL (70-99) Calcium Level 8.7 mg/dL (8.5-10.1) 8.2 mg/dL (8.5-10.1) Total Bilirubin 0.4 mg/dL (0.2-1.0) Aspartate Amino Transf (AST/SGOT) 82 U/L (15-37) Alanine Aminotransferase (ALT/SGPT) 152 U/L (14-59) Alkaline Phosphatase 79 U/L (46-116) Lactate Dehydrogenase 238 U/L (81-234) Creatine Kinase 321 U/L (26-192) Troponin I Quantitative < 0.017 ng/mL (0.000-0.055) C-Reactive Protein, Quantitative 24.2 mg/L (0-3.3) YA-Owx-H-Type Natriuretic Peptide 46 pg/mL (0-124) Total Protein 6.9 g/dL (6.4-8.2) Albumin 3.4 g/dL (3.4-5.0) Albumin/Globulin Ratio 1.0 (1.0-1.7) Medications Active Scripts Medications Dose Route/Sig Max Daily Dose Days Date Category Tylenol (Acetaminophen) 325 Mg Tablet 650 Mg PO PRN Q6HRS PRN 06/14/14 Rx Impression . IMPRESSION: 1. Acute hypoxemic respiratory failure secondary to COVID-19 viral pneumonia. 2. COVID-19 viral pneumonia, the patient failed outpatient treatment, now hypoxic, increasing symptoms. 3. Abnormal x-ray, possible bacterial pneumonia, gram-positive and gram-negative. 4. Morbid obesity. 5. History of sarcoid. 6. Obstructive sleep apnea. 7. Fever secondary to above. Plan . Oxygen supplementation Remdesivir Steroids Antibiotics Vitamin C zinc Continue current support NEISHA MORALES MD Jan 28, 2020 08:42
--- NOTE | 2020-01-28 09:07 | PDOC ---
Provider Note Date of Service: DATE: 01/28/20 TIME: 09:06 Provider Note Pt seen.H&P dictated.#[id number]. Justifications for Admission Other Justification WALDO KUMAR MD Jan 28, 2020 09:07
--- NOTE | 2020-01-28 09:07 | PDOC ---
PROGRESS NOTES Date of Service: DATE: 01/28/20 TIME: 09:07 Objective Objective Vital Signs Date Time Temp Pulse Resp B/P (MAP) Pulse Ox O2 Delivery O2 Flow Rate FiO2 01/28/20 07:00 98.5 84 21 114/58 (76) 92 Nasal Cannula 6.0 98.5 Intake and Output 01/28/20 07:00 Intake Total 300 ml Balance 300 ml Intake Oral 300 ml Diagnosis Problem List Problems Medical Problems: (1) Community acquired pneumonia Status: Acute (2) Coronavirus infection Status: Acute Assessment Assessment Problems Medical Problems: (1) Community acquired pneumonia Status: Acute (2) Coronavirus infection Status: Acute Plan Plan of Care Problems Medical Problems: (1) Community acquired pneumonia Status: Acute (2) Coronavirus infection Status: Acute Comment Review of Relevant I have reviewed the following items dion (where applicable) has been applied. Labs Laboratory Tests Test 01/27/20 11:31 01/28/20 04:00 White Blood Count 6.4 x10^3/uL (4.0-11.0) 4.7 x10^3/uL (4.0-11.0) Red Blood Count 4.70 x10^6/uL (3.50-5.40) 4.17 x10^6/uL (3.50-5.40) Hemoglobin 13.1 g/dL (12.0-15.5) 11.8 g/dL (12.0-15.5) Hematocrit 39.7 % (36.0-47.0) 35.8 % (36.0-47.0) Mean Corpuscular Volume 85 fL (79-100) 86 fL (79-100) Mean Corpuscular Hemoglobin 28 pg (25-35) 28 pg (25-35) Mean Corpuscular Hemoglobin Concent 33 g/dL (31-37) 33 g/dL (31-37) Red Cell Distribution Width 14.3 % (11.5-14.5) 14.7 % (11.5-14.5) Platelet Count 161 x10^3/uL (140-400) 154 x10^3/uL (140-400) Neutrophils (%) (Auto) 77 % (31-73) 70 % (31-73) Lymphocytes (%) (Auto) 13 % (24-48) 19 % (24-48) Monocytes (%) (Auto) 10 % (0-9) 12 % (0-9) Eosinophils (%) (Auto) 0 % (0-3) 0 % (0-3) Basophils (%) (Auto) 0 % (0-3) 0 % (0-3) Neutrophils # (Auto) 4.9 x10^3/uL (1.8-7.7) 3.3 x10^3/uL (1.8-7.7) Lymphocytes # (Auto) 0.8 x10^3/uL (1.0-4.8) 0.9 x10^3/uL (1.0-4.8) Monocytes # (Auto) 0.6 x10^3/uL (0.0-1.1) 0.5 x10^3/uL (0.0-1.1) Eosinophils # (Auto) 0.0 x10^3/uL (0.0-0.7) 0.0 x10^3/uL (0.0-0.7) Basophils # (Auto) 0.0 x10^3/uL (0.0-0.2) 0.0 x10^3/uL (0.0-0.2) D-Dimer (Aide) 1.05 ug/mlFEU (0.00-0.50) Sodium Level 142 mmol/L (136-145) 141 mmol/L (136-145) Potassium Level 3.2 mmol/L (3.5-5.1) 3.8 mmol/L (3.5-5.1) Chloride Level 103 mmol/L (98-107) 106 mmol/L (98-107) Carbon Dioxide Level 26 mmol/L (21-32) 25 mmol/L (21-32) Anion Gap 13 (6-14) 10 (6-14) Blood Urea Nitrogen 14 mg/dL (7-20) 15 mg/dL (7-20) Creatinine 0.9 mg/dL (0.6-1.0) 0.7 mg/dL (0.6-1.0) Estimated GFR (Cockcroft-Gault) 62.5 83.5 BUN/Creatinine Ratio 16 (6-20) Glucose Level 92 mg/dL (70-99) 115 mg/dL (70-99) Calcium Level 8.7 mg/dL (8.5-10.1) 8.2 mg/dL (8.5-10.1) Total Bilirubin 0.4 mg/dL (0.2-1.0) Aspartate Amino Transf (AST/SGOT) 82 U/L (15-37) Alanine Aminotransferase (ALT/SGPT) 152 U/L (14-59) Alkaline Phosphatase 79 U/L (46-116) Lactate Dehydrogenase 238 U/L (81-234) Creatine Kinase 321 U/L (26-192) Troponin I Quantitative < 0.017 ng/mL (0.000-0.055) C-Reactive Protein, Quantitative 24.2 mg/L (0-3.3) RN-Tnn-U-Type Natriuretic Peptide 46 pg/mL (0-124) Total Protein 6.9 g/dL (6.4-8.2) Albumin 3.4 g/dL (3.4-5.0) Albumin/Globulin Ratio 1.0 (1.0-1.7) Medications Current Medications Acetaminophen (Tylenol) 1,000 mg 1X ONCE PO Last administered on 01/27/20 11:51; Start 01/27/20 at 11:00; Stop 01/27/20 at 11:01; Status DC Albuterol/ Ipratropium (Combivent Respimat 20-100 Mcg) 1 puff RTQID INH Last administered on 01/28/20at 08:35; Start 01/27/20 at 20:00 Ascorbic Acid (Vitamin C) 3,000 mg TID PO Last administered on 01/28/20 08:36; Start 01/27/20 at 18:00 Ceftriaxone Sodium (Rocephin) 1 gm 1X ONCE IVP Last administered on 01/27/20 11:51; Start 01/27/20 at 11:00; Stop 01/27/20 at 11:01; Status DC Ceftriaxone Sodium (Rocephin) 1 gm Q24H IVP Last administered on 01/28/20 08:37; Start 01/28/20 at 09:00 Dexamethasone (Decadron) 6 mg [id number] PO Last administered on 01/28/20 08:36; Start 01/28/20 at 09:00 Dexamethasone Sodium Phosphate (Decadron) 10 mg 1X ONCE IVP Last administered on 01/27/20at 11:51; Start 01/27/20 at 11:00; Stop 01/27/20 at 11:01; Status DC Diphenhydramine HCl (Benadryl) 50 mg PRN QHS PRN PO INSOMNIA; Start 01/27/20 at 16:45 Doxycycline Hyclate (Vibra-Tab) 100 mg BID PO Last administered on 01/28/20at 08:36; Start 01/27/20 at 21:00 Enoxaparin Sodium (Lovenox 40mg Syringe) 40 mg Q12HR SQ Last administered on 01/28/20at 08:36; Start 01/27/20 at 21:00 Potassium Chloride (Klor-Con) 40 meq 1X ONCE PO Last administered on 01/27/20at 18:19; Start 01/27/20 at 18:00; Stop 01/27/20 at 18:01; Status DC Remdesivir 100 mg/ Sodium Chloride 230 ml @ 460 mls/hr Q24H IV ; Start 01/28/20 at 18:00; Stop 01/31/20 at 18:29 Remdesivir 200 mg/ Sodium Chloride 210 ml @ 210 mls/hr 1X ONCE IV Last administered on 01/27/20at 18:20; Start 01/27/20 at 18:00; Stop 01/27/20 at 18:59; Status DC Sodium Chloride 1,000 ml @ 100 mls/hr Q10H IV Last administered on 01/28/20at 04:00; Start 01/27/20 at 18:00 Zinc Sulfate (Orazinc) 220 mg DAILY PO Last administered on 01/28/20at 08:36; Start 01/27/20 at 18:00 Vitals/I & O Vital Sign - Last 24 Hours 01/27/20 01/27/20 01/27/20 01/27/20 10:09 10:20 10:50 11:20 Temp 102.7 102.7 Pulse 104 99 99 Resp 22 B/P (MAP) 172/79 (110) 168/75 (106) 178/134 (149) Pulse Ox 86 92 94 92 O2 Delivery Room Air Nasal Cannula Nasal Cannula Nasal Cannula O2 Flow Rate 2.0 2.0 2.0 01/27/20 01/27/20 01/27/20 01/27/20 11:50 12:20 12:50 17:50 Pulse 100 99 97 91 Resp 18 B/P (MAP) 163/72 (102) 155/74 (101) 146/70 (95) 132/82 (99) Pulse Ox 95 95 95 91 O2 Delivery Nasal Cannula Nasal Cannula Nasal Cannula Nasal Cannula O2 Flow Rate 2.0 2.0 2.0 2.0 01/27/20 01/27/20 01/28/20 01/28/20 20:09 23:00 03:00 07:00 Temp 98.6 98.6 96.8 98.5 98.6 98.6 96.8 98.5 Pulse 91 81 79 84 Resp 18 20 16 21 B/P (MAP) 119/56 (77) 123/69 (87) 123/68 (86) 114/58 (76) Pulse Ox 93 90 93 92 O2 Delivery Nasal Cannula Nasal Cannula Nasal Cannula Nasal Cannula O2 Flow Rate 6.0 6.0 6.0 6.0 Intake and Output 01/27/20 01/27/20 01/28/20 15:00 23:00 07:00 Intake Total 300 ml Balance 300 ml Justifications for Admission Other Justification WALDO KUMAR MD Jan 28, 2020 09:07
[2020-01-28] MEDS ORDERED: CALCIUM CARBONATE 500 MG TAB.CHEW PO PRN (09:45)
[2020-01-28] MEDS: guaiFENesin/CODEINE 100mg/10mg 5 ML LIQUID PO PRN (10:25)
--- NOTE | 2020-01-28 10:45 | HP ---
ADMIT DATE: 01/27/2020 MEDICAL HISTORY AND PHYSICAL LOCATION: 665. REASON FOR ADMISSION: COVID pneumonia. HISTORY OF PRESENT ILLNESS: The patient is a 69-year-old female. She works at and she was not feeling well over the weekend. She went to urgent care center at the [facility] and she was tested for COVID and given antibiotics, doxycycline and prednisone. She was called 2 days ago that she had COVID positive. In the meantime, she was having more cough, shortness of breath and came to the Emergency Room. Chest x-ray shows right lung infiltrate, oxygen was low. She was given oxygen, on 2 liters, now she is on 6 liters nasal cannula. The patient was started on remdesivir and dexamethasone. PAST MEDICAL HISTORY: She is positive for sarcoidosis, under control. She has obstructive sleep apnea and uses CPAP, arthritis. PAST SURGICAL HISTORY: Had a biopsy of the lung which was positive for sarcoidosis, laparoscopic gallbladder surgery, breast biopsy, rotator cuff repair. ALLERGIES: HYDROCODONE, CAUSES NAUSEA AND EMESIS. SOCIAL HISTORY: She was a smoker, quit in 1983. FAMILY HISTORY: Positive for diabetes and hypertension in mom. MEDICATIONS: Meloxicam for arthritis. REVIEW OF SYMPTOMS: The patient was complaining of cough, sputum as well as fever with some chills. PHYSICAL EXAMINATION: GENERAL: The patient is comfortable, not in any distress. VITAL SIGNS: At the time of admission shows a temperature 102.7, pulse 104, respirations 22, blood pressure 172/79, 86% on room air, 92% on 2 liters. HEENT: Head is atraumatic. Pupils equal. Oral cavity, congestion. NECK: Supple. Thyroid not enlarged. JVD not elevated. CHEST: Symmetrical. CARDIOVASCULAR: S1, S2. LUNGS: Crackles in the right base. ABDOMEN: Soft, no mass palpable. EXTERNAL GENITALIA: No Ocho[place]. RECTAL: Deferred. EXTREMITIES: No calf tenderness, no edema. Pulses 1+. NEUROLOGIC: Moving all extremities. No focal deficits noted. LABORATORY DATA: Shows a white count of 6, hemoglobin 13, platelets 161. D-dimer 1.0. Electrolytes show sodium 142, potassium 3.2, chloride 103, bicarbonate 26, BUN 14, creatinine 0.9, AST 82, ALT 152, alkaline phosphatase 79. LDH 238. CPK 321. Troponin 0.017. C-reactive protein 24. Chest x-ray shows pneumonia. FINAL IMPRESSION: 1. COVID pneumonia. 2. Recent COVID infection. 3. Sarcoidosis. 4. Sleep apnea. 5. Obesity, BMI 38. 6. Arthritis. PLAN: At this time, the patient was admitted to the hospital, requiring oxygen 2-4 liters and the patient was started on remdesivir loading dose and once a day for 5 days, dexamethasone 10 mg loading dose and 6 mg daily, and DVT prevention with Lovenox b.i.d. dose and see how she improves. WALDO KUMAR MD DR: MIGUEL/ayesha JOB#: [id number] / [id number]
[2020-01-28 10:59] VITALS: BP 145/66
[2020-01-28 15:00] VITALS: BP 135/66
--- NOTE | 2020-01-28 17:31 | NUR ---
[facility] following for discharge planning. Spoke with RN and reviewed chart. Pt from home. Pt KIRK positive, 6l 02, IV abx. Pt has home . [facility] following. Addendum: 01/31/20 at 1644 by JODI ESCOTO Error. Pt does not have home
[2020-01-28] MEDS: REMDESIVIR 100mg in NORMAL SALINE 250ML X 4 DAYS IV SCH (18:00)
[2020-01-28 19:15] VITALS: BP 119/51
[2020-01-28] MEDS: LACTOBACILLUS RHAMNOSUS GG 1 CAPSULE. PO SCH (22:11)
[2020-01-28 23:35] VITALS: BP 133/51
[2020-01-29] MEDS ORDERED: HYDROCORTISONE 2.5% RECTAL CREAM 30GM TUBE. RC PRN (00:30)
[2020-01-29] MEDS: guaiFENesin/CODEINE 100mg/10mg 5 ML LIQUID PO PRN ×2 (00:31→15:10)
[2020-01-29] MEDS: IPRATROPIUM/ALBUTEROL 20/100mcg/INH INHALER. INH SCH ×5 (00:38→21:02)
[2020-01-29 03:00] VITALS: BP 112/58
[2020-01-29 04:55] LABS: ALBUMIN 2.9 g/dL (3.4-5.0); DIRECT BILIRUBIN 0.2 mg/dL (0.0-0.2); TOTAL BILIRUBIN 0.3 mg/dL (0.2-1.0); TOTAL PROTEIN 6.7 g/dL (6.4-8.2)
[2020-01-29] MEDS: IV NORMAL SALINE 1000ML BAG 1,000 ML IV SCH ×2 (05:28→08:59)
[2020-01-29] MEDS: ACETAMINOPHEN 325 MG TABLET. PO PRN ×2 (05:48→21:04)
[2020-01-29] MEDS: DEXAMETHASONE 4 MG TABLET PO SCH (08:58)
[2020-01-29] MEDS: DOXYCYCLINE HYCLATE 100 MG TABLET PO SCH ×2 (08:58→21:02)
[2020-01-29] MEDS: ZINC SULFATE 220 MG CAPSULE. PO SCH (08:58)
[2020-01-29 08:59] VITALS: BP 141/67
[2020-01-29] MEDS: cefTRIAXone IV Push 1 GM VIAL. IVP SCH (08:59)
[2020-01-29] MEDS: ASCORBIC ACID 1,000 MG TABLET PO SCH ×3 (08:59→21:02)
[2020-01-29] MEDS: ENOXAPARIN 40 MG/0.4 ML SYRINGE. SQ SCH ×2 (08:59→21:02)
[2020-01-29] MEDS: LACTOBACILLUS RHAMNOSUS GG 1 CAPSULE. PO SCH ×2 (08:59→21:02)
--- NOTE | 2020-01-29 09:43 | PDOC ---
PULMONARY PROGRESS NOTES DATE: 01/29/20 TIME: 09:41 Subjective sob better has occ cough on 02 6 lpm Vitals Vital Signs Date Time Temp Pulse Resp B/P (MAP) Pulse Ox O2 Delivery O2 Flow Rate FiO2 01/29/20 08:59 97.8 79 20 141/67 (91) 92 Nasal Cannula 5.0 97.8 Comments alert nc at rrr no paradoxical abd motion no rash ROS: No Nausea, No Chest Pain, No Abdominal Pain, No Increase Cough Labs Laboratory Tests Test 01/27/20 11:31 01/28/20 04:00 01/29/20 04:00 White Blood Count 6.4 x10^3/uL (4.0-11.0) 4.7 x10^3/uL (4.0-11.0) Red Blood Count 4.70 x10^6/uL (3.50-5.40) 4.17 x10^6/uL (3.50-5.40) Hemoglobin 13.1 g/dL (12.0-15.5) 11.8 g/dL (12.0-15.5) Hematocrit 39.7 % (36.0-47.0) 35.8 % (36.0-47.0) Mean Corpuscular Volume 85 fL (79-100) 86 fL (79-100) Mean Corpuscular Hemoglobin 28 pg (25-35) 28 pg (25-35) Mean Corpuscular Hemoglobin Concent 33 g/dL (31-37) 33 g/dL (31-37) Red Cell Distribution Width 14.3 % (11.5-14.5) 14.7 % (11.5-14.5) Platelet Count 161 x10^3/uL (140-400) 154 x10^3/uL (140-400) Neutrophils (%) (Auto) 77 % (31-73) 70 % (31-73) Lymphocytes (%) (Auto) 13 % (24-48) 19 % (24-48) Monocytes (%) (Auto) 10 % (0-9) 12 % (0-9) Eosinophils (%) (Auto) 0 % (0-3) 0 % (0-3) Basophils (%) (Auto) 0 % (0-3) 0 % (0-3) Neutrophils # (Auto) 4.9 x10^3/uL (1.8-7.7) 3.3 x10^3/uL (1.8-7.7) Lymphocytes # (Auto) 0.8 x10^3/uL (1.0-4.8) 0.9 x10^3/uL (1.0-4.8) Monocytes # (Auto) 0.6 x10^3/uL (0.0-1.1) 0.5 x10^3/uL (0.0-1.1) Eosinophils # (Auto) 0.0 x10^3/uL (0.0-0.7) 0.0 x10^3/uL (0.0-0.7) Basophils # (Auto) 0.0 x10^3/uL (0.0-0.2) 0.0 x10^3/uL (0.0-0.2) D-Dimer (Aide) 1.05 ug/mlFEU (0.00-0.50) Sodium Level 142 mmol/L (136-145) 141 mmol/L (136-145) Potassium Level 3.2 mmol/L (3.5-5.1) 3.8 mmol/L (3.5-5.1) Chloride Level 103 mmol/L (98-107) 106 mmol/L (98-107) Carbon Dioxide Level 26 mmol/L (21-32) 25 mmol/L (21-32) Anion Gap 13 (6-14) 10 (6-14) Blood Urea Nitrogen 14 mg/dL (7-20) 15 mg/dL (7-20) Creatinine 0.9 mg/dL (0.6-1.0) 0.7 mg/dL (0.6-1.0) Estimated GFR (Cockcroft-Gault) 62.5 83.5 BUN/Creatinine Ratio 16 (6-20) Glucose Level 92 mg/dL (70-99) 115 mg/dL (70-99) Calcium Level 8.7 mg/dL (8.5-10.1) 8.2 mg/dL (8.5-10.1) Total Bilirubin 0.4 mg/dL (0.2-1.0) 0.3 mg/dL (0.2-1.0) Aspartate Amino Transf (AST/SGOT) 82 U/L (15-37) 37 U/L (15-37) Alanine Aminotransferase (ALT/SGPT) 152 U/L (14-59) 85 U/L (14-59) Alkaline Phosphatase 79 U/L (46-116) 64 U/L (46-116) Lactate Dehydrogenase 238 U/L (81-234) Creatine Kinase 321 U/L (26-192) Troponin I Quantitative < 0.017 ng/mL (0.000-0.055) C-Reactive Protein, Quantitative 24.2 mg/L (0-3.3) QK-Bei-A-Type Natriuretic Peptide 46 pg/mL (0-124) Total Protein 6.9 g/dL (6.4-8.2) 6.7 g/dL (6.4-8.2) Albumin 3.4 g/dL (3.4-5.0) 2.9 g/dL (3.4-5.0) Albumin/Globulin Ratio 1.0 (1.0-1.7) Direct Bilirubin 0.2 mg/dL (0.0-0.2) Laboratory Tests Test 01/29/20 04:00 Total Bilirubin 0.3 mg/dL (0.2-1.0) Direct Bilirubin 0.2 mg/dL (0.0-0.2) Aspartate Amino Transf (AST/SGOT) 37 U/L (15-37) Alanine Aminotransferase (ALT/SGPT) 85 U/L (14-59) Alkaline Phosphatase 64 U/L (46-116) Total Protein 6.7 g/dL (6.4-8.2) Albumin 2.9 g/dL (3.4-5.0) Medications Active Scripts Medications Dose Route/Sig Max Daily Dose Days Date Category Tylenol (Acetaminophen) 325 Mg Tablet 650 Mg PO PRN Q6HRS PRN 06/14/14 Rx Impression . IMPRESSION: 1. Acute hypoxemic respiratory failure secondary to COVID-19 viral pneumonia. 2. COVID-19 viral pneumonia, the patient failed outpatient treatment, now hypoxic, increasing symptoms. 3. Abnormal x-ray, possible bacterial pneumonia, gram-positive and gram-negative. 4. Morbid obesity. 5. History of sarcoid. 6. Obstructive sleep apnea. 7. Fever secondary to above. Plan . Oxygen supplementation 02 titration Remdesivir Steroids Antibiotics Vitamin C zinc Continue current support discussed w BETH Mcnulty MD Jan 29, 2020 09:42
--- NOTE | 2020-01-29 10:42 | RAD ---
PORTABLE CHEST 1V Clinical History: Reason: covid pneumonia / Spl. Instructions: / History: Technique: AP view of the chest was obtained at 01/29/2020 7:00 AM. Comparison: January 27, 2020. Findings: The heart is top normal limits in size. The pulmonary vessels appear somewhat cephalized and there is patchy opacities in the left lung base and throughout the right lung. Impression: Bilateral infiltrates likely atypical pneumonia. This appears mild to moderately worse. Electronically signed by: Jesus Byrne III, MD (01/29/2020 10:39 AM) [facility]
--- NOTE | 2020-01-29 11:38 | PDOC ---
PROGRESS NOTES Date of Service: DATE: 01/29/20 TIME: 11:36 Subjective Subjective less cough today Objective Objective Vital Signs Date Time Temp Pulse Resp B/P (MAP) Pulse Ox O2 Delivery O2 Flow Rate FiO2 01/29/20 08:59 97.8 79 20 141/67 (91) 92 Nasal Cannula 5.0 97.8 Intake and Output 01/29/20 07:00 Intake Total 1080 ml Balance 1080 ml Intake Oral 1080 ml # Voids 2 Physical Exam Heart: Regular rate, Normal S1, Normal S2 Extremities: No clubbing General: Alert HEENT: Atraumatic Lungs: Other (crackles at bases) Neck: Supple Neuro: Normal speech Psych/Mental Status: Mental status NL Skin: No breakdown Diagnosis Problem List Problems Medical Problems: (1) Community acquired pneumonia Status: Acute (2) Coronavirus infection Status: Acute Assessment Assessment Problems Medical Problems: (1) Community acquired pneumonia Status: Acute (2) Coronavirus infection Status: Acute FINAL IMPRESSION: 1. COVID pneumonia. 2. Recent COVID infection. 3. Sarcoidosis. 4. Sleep apnea. 5. Obesity, BMI 38. 6. Arthritis. PLAN: cxr slightly worse clinically improving. labs reviewed ,LFT trending down Remdesivir +dexamethasone Lovenox for DVT prevention. Plan Plan of Care Problems Medical Problems: (1) Community acquired pneumonia Status: Acute (2) Coronavirus infection Status: Acute Comment Review of Relevant I have reviewed the following items dion (where applicable) has been applied. Labs Laboratory Tests Test 01/29/20 04:00 Total Bilirubin 0.3 mg/dL (0.2-1.0) Direct Bilirubin 0.2 mg/dL (0.0-0.2) Aspartate Amino Transf (AST/SGOT) 37 U/L (15-37) Alanine Aminotransferase (ALT/SGPT) 85 U/L (14-59) Alkaline Phosphatase 64 U/L (46-116) Total Protein 6.7 g/dL (6.4-8.2) Albumin 2.9 g/dL (3.4-5.0) Medications Current Medications Acetaminophen (Tylenol) 650 mg PRN Q8HRS PRN PO MILD PAIN / TEMP > 100.3'F Last administered on 01/29/20at 05:48; Start 01/29/20 at 05:45 Hydrocortisone (Proctosol-Hc) 1 janet PRN BID PRN RC hemorrhoids Last administered on 01/29/20at 00:28; Start 01/29/20 at 00:30 Lactobacillus Rhamnosus (Culturelle) 1 cap BID PO Last administered on 01/29/20at 08:59; Start 01/28/20 at 21:00 Remdesivir 100 mg/ Sodium Chloride 230 ml @ 460 mls/hr Q24H IV Last administered on 01/28/20at 18:00; Start 01/28/20 at 18:00; Stop 01/31/20 at 18:29 Vitals/I & O Vital Sign - Last 24 Hours 01/28/20 01/28/20 01/28/20 01/28/20 15:00 19:15 19:30 23:35 Temp 98.9 98.8 98.7 98.9 98.8 98.7 Pulse 90 86 82 Resp 18 22 18 B/P (MAP) 135/66 (89) 119/51 (73) 133/51 (78) Pulse Ox 92 92 90 O2 Delivery Nasal Cannula Nasal Cannula Nasal Cannula Nasal Cannula O2 Flow Rate 6.0 6.0 6.0 6.0 01/29/20 01/29/20 03:00 08:59 Temp 98.1 97.8 98.1 97.8 Pulse 79 79 Resp 20 20 B/P (MAP) 112/58 (76) 141/67 (91) Pulse Ox 92 92 O2 Delivery Nasal Cannula Nasal Cannula O2 Flow Rate 6.0 5.0 Intake and Output 01/28/20 01/28/20 01/29/20 15:00 23:00 07:00 Intake Total 350 ml 250 ml 480 ml Balance 350 ml 250 ml 480 ml Justifications for Admission Other Justification WALDO KUMAR MD Jan 29, 2020 11:37
[2020-01-29 11:59] VITALS: BP 134/59
[2020-01-29 15:59] VITALS: BP 122/57
[2020-01-29] MEDS: REMDESIVIR 100mg in NORMAL SALINE 250ML X 4 DAYS IV SCH (17:47)
[2020-01-29 19:00] VITALS: BP 147/75
[2020-01-29 23:41] VITALS: BP 129/80
[2020-01-30 03:00] VITALS: BP 141/75
[2020-01-30 07:00] VITALS: BP 147/76
[2020-01-30] MEDS: IPRATROPIUM/ALBUTEROL 20/100mcg/INH INHALER. INH SCH ×4 (08:00→20:00)
[2020-01-30] MEDS: ENOXAPARIN 40 MG/0.4 ML SYRINGE. SQ SCH ×2 (09:02→21:24)
[2020-01-30] MEDS: LACTOBACILLUS RHAMNOSUS GG 1 CAPSULE. PO SCH ×2 (09:03→21:24)
[2020-01-30] MEDS: cefTRIAXone IV Push 1 GM VIAL. IVP SCH (09:03)
[2020-01-30] MEDS: ASCORBIC ACID 1,000 MG TABLET PO SCH ×3 (09:03→21:24)
[2020-01-30] MEDS: DEXAMETHASONE 4 MG TABLET PO SCH (09:03)
[2020-01-30] MEDS: DOXYCYCLINE HYCLATE 100 MG TABLET PO SCH ×2 (09:03→21:24)
[2020-01-30] MEDS: ZINC SULFATE 220 MG CAPSULE. PO SCH (09:03)
--- NOTE | 2020-01-30 09:39 | PDOC ---
PULMONARY PROGRESS NOTES DATE: 01/30/20 TIME: 09:39 Subjective sob better has occ cough on 02 6 lpm Vitals Vital Signs Date Time Temp Pulse Resp B/P (MAP) Pulse Ox O2 Delivery O2 Flow Rate FiO2 01/30/20 07:00 98.3 87 20 147/76 (99) 89 Nasal Cannula 6.0 98.3 Comments alert nc at rrr no paradoxical abd motion no rash ROS: No Nausea, No Chest Pain, No Abdominal Pain, No Increase Cough Labs Laboratory Tests Test 01/29/20 04:00 Total Bilirubin 0.3 mg/dL (0.2-1.0) Direct Bilirubin 0.2 mg/dL (0.0-0.2) Aspartate Amino Transf (AST/SGOT) 37 U/L (15-37) Alanine Aminotransferase (ALT/SGPT) 85 U/L (14-59) Alkaline Phosphatase 64 U/L (46-116) Total Protein 6.7 g/dL (6.4-8.2) Albumin 2.9 g/dL (3.4-5.0) Medications Active Scripts Medications Dose Route/Sig Max Daily Dose Days Date Category Tylenol (Acetaminophen) 325 Mg Tablet 650 Mg PO PRN Q6HRS PRN 06/14/14 Rx Impression . IMPRESSION: 1. Acute hypoxemic respiratory failure secondary to COVID-19 viral pneumonia. 2. COVID-19 viral pneumonia, the patient failed outpatient treatment, now hypoxic, increasing symptoms. 3. Abnormal x-ray, possible bacterial pneumonia, gram-positive and gram-negative. 4. Morbid obesity. 5. History of sarcoid. 6. Obstructive sleep apnea. 7. Fever secondary to above. Plan . Oxygen supplementation 02 titration Remdesivir Steroids Antibiotics Vitamin C zinc Continue current support discussed w BETH Mcnulty MD Jan 30, 2020 09:39
--- NOTE | 2020-01-30 10:19 | PDOC ---
IM PROGRESS NOTES- Subjective Subjective Has cough ,congestion. Feeling slightly better Objective Vitals/I&O Vital Signs Date Time Temp Pulse Resp B/P (MAP) Pulse Ox O2 Delivery O2 Flow Rate FiO2 01/30/20 07:00 98.3 87 20 147/76 (99) 89 Nasal Cannula 6.0 98.3 I & O 01/29/20 01/29/20 01/30/20 15:00 23:00 07:00 Intake Total 100 ml 200 ml Balance 100 ml 200 ml Physical Exam Physical Exam General appearance - alert,ill appearing, and in mild distress and oriented to person, place, and time Mental Status - alert, oriented to person, place, and time, affect appropriate to mood Head - normal Chest -decreased breath sounds at bases, few coarse breath sounds bilaterally. On oxygen by nasal cannula. Heart - S1 and S2 normal Abdomen - soft, non tender, Neurological - alert and oriented Musculoskeletal - weak Extremities - no pedal edema Assessment Assessment Problems Medical Problems: (1) Community acquired pneumonia Status: Acute (2) Coronavirus infection Status: Acute FINAL IMPRESSION: 1. COVID pneumonia. 2. Recent COVID infection. 3. Sarcoidosis. 4. Sleep apnea. 5. Obesity, BMI 38. 6. Arthritis. PLAN: clinically improving. Remdesivir +dexamethasone Lovenox for DVT prevention. Slowly improving Plan Plan For more details regarding further plans, please refer to the orders. Justifications for Admission Other Justification FABIENNE DORMAN MD Jan 30, 2020 10:19
[2020-01-30 11:00] VITALS: BP 172/82
[2020-01-30 15:00] VITALS: BP 192/74
[2020-01-30] MEDS: REMDESIVIR 100mg in NORMAL SALINE 250ML X 4 DAYS IV SCH (17:29)
[2020-01-30 21:40] VITALS: BP 152/73
[2020-01-30] MEDS: guaiFENesin/CODEINE 100mg/10mg 5 ML LIQUID PO PRN (21:48)
[2020-01-30] MEDS: diphenhydrAMINE HCL 25 MG CAPSULE PO PRN (21:48)
[2020-01-30] MEDS: ACETAMINOPHEN 325 MG TABLET. PO PRN (21:49)
[2020-01-30 23:39] VITALS: BP 161/90
[2020-01-31 03:44] VITALS: BP 141/86
[2020-01-31 07:00] VITALS: BP 165/89
[2020-01-31] MEDS: IPRATROPIUM/ALBUTEROL 20/100mcg/INH INHALER. INH SCH ×4 (08:00→20:55)
[2020-01-31] MEDS: ASCORBIC ACID 1,000 MG TABLET PO SCH ×3 (08:13→20:45)
[2020-01-31] MEDS: LACTOBACILLUS RHAMNOSUS GG 1 CAPSULE. PO SCH ×2 (08:14→20:45)
[2020-01-31] MEDS: DEXAMETHASONE 4 MG TABLET PO SCH (08:14)
[2020-01-31] MEDS: ENOXAPARIN 40 MG/0.4 ML SYRINGE. SQ SCH ×2 (08:15→20:44)
[2020-01-31] MEDS: ZINC SULFATE 220 MG CAPSULE. PO SCH (08:15)
[2020-01-31] MEDS: DOXYCYCLINE HYCLATE 100 MG TABLET PO SCH ×2 (08:15→20:44)
--- NOTE | 2020-01-31 08:17 | PDOC ---
PROGRESS NOTES Date of Service: DATE: 01/31/20 TIME: 08:17 Objective Objective Vital Signs Date Time Temp Pulse Resp B/P (MAP) Pulse Ox O2 Delivery O2 Flow Rate FiO2 01/31/20 03:44 97.6 87 20 141/86 (104) 93 Nasal Cannula 6.0 97.6 Intake and Output 01/31/20 07:00 Intake Total 400 ml Balance 400 ml Intake Oral 400 ml Physical Exam Heart: Regular rate, Normal S1, Normal S2 Extremities: No clubbing General: Alert HEENT: Atraumatic Lungs: Other (crackles at bases) Neck: Supple Neuro: Normal speech Psych/Mental Status: Mental status NL Skin: No breakdown Diagnosis Problem List Problems Medical Problems: (1) Community acquired pneumonia Status: Acute (2) Coronavirus infection Status: Acute Assessment Assessment Problems Medical Problems: (1) Community acquired pneumonia Status: Acute (2) Coronavirus infection Status: Acute FINAL IMPRESSION: 1. COVID pneumonia. 2. Recent COVID infection. 3. Sarcoidosis. 4. Sleep apnea. 5. Obesity, BMI 38. 6. Arthritis. PLAN: d/c home tomorrow clinically improving. finishing Remdesivir +dexamethasone today Lovenox for DVT prevention. Slowly improving Plan Plan of Care Problems Medical Problems: (1) Community acquired pneumonia Status: Acute (2) Coronavirus infection Status: Acute Comment Review of Relevant I have reviewed the following items dion (where applicable) has been applied. Vitals/I & O Vital Sign - Last 24 Hours 01/30/20 01/30/20 01/30/20 01/30/20 11:00 15:00 21:40 21:40 Temp 99.1 99.4 98.3 99.1 99.4 98.3 Pulse 82 91 92 Resp 25 25 24 B/P (MAP) 172/82 (112) 192/74 (113) 152/73 (99) Pulse Ox 90 91 90 O2 Delivery Nasal Cannula Nasal Cannula Nasal Cannula Nasal Cannula O2 Flow Rate 6.0 6.0 6.0 6.0 01/30/20 01/31/20 23:39 03:44 Temp 98.3 97.6 98.3 97.6 Pulse 96 87 Resp 24 20 B/P (MAP) 161/90 (113) 141/86 (104) Pulse Ox 85 93 O2 Delivery Nasal Cannula Nasal Cannula O2 Flow Rate 6.0 6.0 Intake and Output 01/30/20 01/30/20 01/31/20 15:00 23:00 07:00 Intake Total 200 ml 200 ml Balance 200 ml 200 ml Justifications for Admission Other Justification WALDO KUMAR MD Jan 31, 2020 08:17
--- NOTE | 2020-01-31 08:56 | PDOC ---
PULMONARY PROGRESS NOTES DATE: 01/31/20 TIME: 08:55 Subjective sob better has occ cough on 02 6 lpm Vitals Vital Signs Date Time Temp Pulse Resp B/P (MAP) Pulse Ox O2 Delivery O2 Flow Rate FiO2 01/31/20 03:44 97.6 87 20 141/86 (104) 93 Nasal Cannula 6.0 97.6 Comments alert nc at rrr no paradoxical abd motion no rash ROS: No Nausea, No Chest Pain, No Abdominal Pain, No Increase Cough Medications Active Scripts Medications Dose Route/Sig Max Daily Dose Days Date Category Tylenol (Acetaminophen) 325 Mg Tablet 650 Mg PO PRN Q6HRS PRN 06/14/14 Rx Impression . IMPRESSION: 1. Acute hypoxemic respiratory failure secondary to COVID-19 viral pneumonia. 2. COVID-19 viral pneumonia, the patient failed outpatient treatment, now hypoxic,stable on 6 litres 3. Abnormal x-ray, possible bacterial pneumonia, gram-positive and gram-negative. 4. Morbid obesity. 5. History of sarcoid. 6. Obstructive sleep apnea. 7. Fever secondary to above. Plan . Oxygen supplementation 02 titration Remdesivir Steroids Antibiotics Vitamin C zinc Continue current support discussed w rn and Dr Doss.can dc home in 24 hrs with O2 KAILASH ROBERTSON MD Jan 31, 2020 08:56
[2020-01-31] MEDS: cefTRIAXone IV Push 1 GM VIAL. IVP SCH (09:00)
[2020-01-31 11:00] VITALS: BP 153/79
[2020-01-31 12:10] LABS: BASO % 0 % (0-3); EOS % 1 % (0-3); HEMATOCRIT 38.2 % (36.0-47.0); HEMOGLOBIN 12.6 g/dL (12.0-15.5); LYMPH # 1.1 x10^3/uL (1.0-4.8); LYMPH % 15 % (24-48); MEAN CORPUSCULAR HEMOGLOBIN 28 pg (25-35); MEAN CORPUSCULAR HGB CONC 33 g/dL (31-37); MEAN CORPUSCULAR VOLUME 85 fL (79-100); MONO # 0.8 x10^3/uL (0.0-1.1); MONO % 11 % (0-9); NEUT # 5.4 x10^3/uL (1.8-7.7); NEUT % 73 % (31-73); PLATELET COUNT 231 x10^3/uL (140-400); RED BLOOD COUNT 4.48 x10^6/uL (3.50-5.40); RED CELL DISTRIBUTION WIDTH 14.8 % (11.5-14.5); WHITE BLOOD COUNT 7.4 x10^3/uL (4.0-11.0)
[2020-01-31 12:26] LABS: ALBUMIN 2.9 g/dL (3.4-5.0); ALBUMIN/GLOBULIN RATIO 0.8 (1.0-1.7); CALCIUM 8.6 mg/dL (8.5-10.1); CREATININE 0.8 mg/dL (0.6-1.0); GFR 71.5; POTASSIUM 3.3 mmol/L (3.5-5.1); TOTAL BILIRUBIN 0.3 mg/dL (0.2-1.0); TOTAL PROTEIN 6.7 g/dL (6.4-8.2)
[2020-01-31 15:00] VITALS: BP 134/98
--- NOTE | 2020-01-31 16:45 | NUR ---
SW following for discharge planning. Spoke with RN and reviewed chart. Spoke with pt who stated she is on sick leave from work. Pt hoping to be able to return to work soon. Pt has [employer] and would like a HH referral on discharge. Pt attempted 6 min walk today but was unable to complete per SOB. Pt will likely discharge tomorrow, 01/31 with and [facility] setup. SW asked about a blood gas level to get pt qualified for home . SW phoned and faxed referral to [facility] and [facility] as pt stated no preference in provider. Patient choice of vendor form completed. SW following.
[2020-01-31] MEDS: REMDESIVIR 100mg in NORMAL SALINE 250ML X 4 DAYS IV SCH (17:34)
[2020-01-31 20:18] VITALS: BP 178/75
[2020-01-31] MEDS: diphenhydrAMINE HCL 25 MG CAPSULE PO PRN (20:45)
[2020-01-31 23:20] VITALS: BP 182/75
[2020-02-01] MEDS: IPRATROPIUM/ALBUTEROL 20/100mcg/INH INHALER. INH SCH ×4 (08:00→21:07)
[2020-02-01] MEDS: ZINC SULFATE 220 MG CAPSULE. PO SCH (08:23)
[2020-02-01] MEDS: DOXYCYCLINE HYCLATE 100 MG TABLET PO SCH ×2 (08:23→21:03)
[2020-02-01] MEDS: DEXAMETHASONE 4 MG TABLET PO SCH (08:23)
[2020-02-01] MEDS: ENOXAPARIN 40 MG/0.4 ML SYRINGE. SQ SCH ×2 (08:23→21:04)
[2020-02-01] MEDS: LACTOBACILLUS RHAMNOSUS GG 1 CAPSULE. PO SCH ×2 (08:23→21:03)
[2020-02-01] MEDS: ASCORBIC ACID 1,000 MG TABLET PO SCH ×3 (08:23→21:03)
[2020-02-01] MEDS: cefTRIAXone IV Push 1 GM VIAL. IVP SCH (08:24)
--- NOTE | 2020-02-01 08:25 | PDOC ---
PROGRESS NOTES Date of Service: DATE: 02/01/20 TIME: 08:25 Subjective Subjective more SOB last night Objective Objective Vital Signs Date Time Temp Pulse Resp B/P (MAP) Pulse Ox O2 Delivery O2 Flow Rate FiO2 01/31/20 23:20 98.0 80 16 182/75 (110) 92 Nasal Cannula 9.0 98.0 Intake and Output 02/01/20 07:00 Intake Total 420 ml Balance 420 ml Intake Oral 300 ml Tube Feeding 120 ml # Voids 5 # Bowel Movements 2 Physical Exam Heart: Regular rate, Normal S1, Normal S2 Extremities: No clubbing General: Alert HEENT: Atraumatic Lungs: Other (crackles at bases) Neck: Supple Neuro: Normal speech Psych/Mental Status: Mental status NL Skin: No breakdown Diagnosis Problem List Problems Medical Problems: (1) Community acquired pneumonia Status: Acute (2) Coronavirus infection Status: Acute Assessment Assessment Problems Medical Problems: (1) Community acquired pneumonia Status: Acute (2) Coronavirus infection Status: Acute FINAL IMPRESSION: 1. COVID pneumonia. 2. Recent COVID infection. 3. Sarcoidosis. 4. Sleep apnea. 5. Obesity, BMI 38. 6. Arthritis. PLAN: inc SOB, will get cxr on 10 L oxygen from 6 L hold off on Discharge due to SOB completed Remdesivir +dexamethasone . Lovenox for DVT prevention. Slowly improving Plan Plan of Care Problems Medical Problems: (1) Community acquired pneumonia Status: Acute (2) Coronavirus infection Status: Acute Comment Review of Relevant I have reviewed the following items dion (where applicable) has been applied. Labs Laboratory Tests Test 01/31/20 11:55 White Blood Count 7.4 x10^3/uL (4.0-11.0) Red Blood Count 4.48 x10^6/uL (3.50-5.40) Hemoglobin 12.6 g/dL (12.0-15.5) Hematocrit 38.2 % (36.0-47.0) Mean Corpuscular Volume 85 fL (79-100) Mean Corpuscular Hemoglobin 28 pg (25-35) Mean Corpuscular Hemoglobin Concent 33 g/dL (31-37) Red Cell Distribution Width 14.8 % (11.5-14.5) Platelet Count 231 x10^3/uL (140-400) Neutrophils (%) (Auto) 73 % (31-73) Lymphocytes (%) (Auto) 15 % (24-48) Monocytes (%) (Auto) 11 % (0-9) Eosinophils (%) (Auto) 1 % (0-3) Basophils (%) (Auto) 0 % (0-3) Neutrophils # (Auto) 5.4 x10^3/uL (1.8-7.7) Lymphocytes # (Auto) 1.1 x10^3/uL (1.0-4.8) Monocytes # (Auto) 0.8 x10^3/uL (0.0-1.1) Eosinophils # (Auto) 0.0 x10^3/uL (0.0-0.7) Basophils # (Auto) 0.0 x10^3/uL (0.0-0.2) Sodium Level 140 mmol/L (136-145) Potassium Level 3.3 mmol/L (3.5-5.1) Chloride Level 104 mmol/L (98-107) Carbon Dioxide Level 29 mmol/L (21-32) Anion Gap 7 (6-14) Blood Urea Nitrogen 14 mg/dL (7-20) Creatinine 0.8 mg/dL (0.6-1.0) Estimated GFR (Cockcroft-Gault) 71.5 BUN/Creatinine Ratio 18 (6-20) Glucose Level 164 mg/dL (70-99) Calcium Level 8.6 mg/dL (8.5-10.1) Total Bilirubin 0.3 mg/dL (0.2-1.0) Aspartate Amino Transf (AST/SGOT) 27 U/L (15-37) Alanine Aminotransferase (ALT/SGPT) 66 U/L (14-59) Alkaline Phosphatase 61 U/L (46-116) Total Protein 6.7 g/dL (6.4-8.2) Albumin 2.9 g/dL (3.4-5.0) Albumin/Globulin Ratio 0.8 (1.0-1.7) Vitals/I & O Vital Sign - Last 24 Hours 01/31/20 01/31/20 01/31/20 01/31/20 11:00 15:00 20:15 20:18 Temp 99.2 99.2 98.4 99.2 99.2 98.4 Pulse 96 93 94 Resp 18 18 16 B/P (MAP) 153/79 (103) 134/98 (110) 178/75 (109) Pulse Ox 93 90 93 O2 Delivery Nasal Cannula Nasal Cannula Nasal Cannula Nasal Cannula O2 Flow Rate 6.0 6.0 9.0 9.0 01/31/20 23:20 Temp 98.0 98.0 Pulse 80 Resp 16 B/P (MAP) 182/75 (110) Pulse Ox 92 O2 Delivery Nasal Cannula O2 Flow Rate 9.0 Intake and Output 01/31/20 01/31/20 02/01/20 15:00 23:00 07:00 Intake Total 240 ml 120 ml 60 ml Balance 240 ml 120 ml 60 ml Justifications for Admission Other Justification WALDO KUMAR MD Feb 01, 2020 08:25
[2020-02-01] MEDS ORDERED: POTASSIUM CHLORIDE 20 MEQ TABLET.ER. PO ONE ×2 (10:00→11:00)
--- NOTE | 2020-02-01 10:07 | PDOC ---
PULMONARY PROGRESS NOTES DATE: 02/01/20 TIME: 10:00 Subjective Patient has increased shortness of breath, continues to have nonproductive cough Requiring more oxygen today, currently on 10 L nasal cannula Unable to perform 6-minute walk secondary to increased oxygen needs/of breath Low-grade fever overnight No other concerns from nursing Vitals Vital Signs Date Time Temp Pulse Resp B/P (MAP) Pulse Ox O2 Delivery O2 Flow Rate FiO2 01/31/20 23:20 98.0 80 16 182/75 (110) 92 Nasal Cannula 9.0 98.0 Comments alert rrr no paradoxical abd motion no rash ROS: No Nausea, No Chest Pain, No Abdominal Pain, No Increase Cough Labs Laboratory Tests Test 01/31/20 11:55 White Blood Count 7.4 x10^3/uL (4.0-11.0) Red Blood Count 4.48 x10^6/uL (3.50-5.40) Hemoglobin 12.6 g/dL (12.0-15.5) Hematocrit 38.2 % (36.0-47.0) Mean Corpuscular Volume 85 fL (79-100) Mean Corpuscular Hemoglobin 28 pg (25-35) Mean Corpuscular Hemoglobin Concent 33 g/dL (31-37) Red Cell Distribution Width 14.8 % (11.5-14.5) Platelet Count 231 x10^3/uL (140-400) Neutrophils (%) (Auto) 73 % (31-73) Lymphocytes (%) (Auto) 15 % (24-48) Monocytes (%) (Auto) 11 % (0-9) Eosinophils (%) (Auto) 1 % (0-3) Basophils (%) (Auto) 0 % (0-3) Neutrophils # (Auto) 5.4 x10^3/uL (1.8-7.7) Lymphocytes # (Auto) 1.1 x10^3/uL (1.0-4.8) Monocytes # (Auto) 0.8 x10^3/uL (0.0-1.1) Eosinophils # (Auto) 0.0 x10^3/uL (0.0-0.7) Basophils # (Auto) 0.0 x10^3/uL (0.0-0.2) Sodium Level 140 mmol/L (136-145) Potassium Level 3.3 mmol/L (3.5-5.1) Chloride Level 104 mmol/L (98-107) Carbon Dioxide Level 29 mmol/L (21-32) Anion Gap 7 (6-14) Blood Urea Nitrogen 14 mg/dL (7-20) Creatinine 0.8 mg/dL (0.6-1.0) Estimated GFR (Cockcroft-Gault) 71.5 BUN/Creatinine Ratio 18 (6-20) Glucose Level 164 mg/dL (70-99) Calcium Level 8.6 mg/dL (8.5-10.1) Total Bilirubin 0.3 mg/dL (0.2-1.0) Aspartate Amino Transf (AST/SGOT) 27 U/L (15-37) Alanine Aminotransferase (ALT/SGPT) 66 U/L (14-59) Alkaline Phosphatase 61 U/L (46-116) Total Protein 6.7 g/dL (6.4-8.2) Albumin 2.9 g/dL (3.4-5.0) Albumin/Globulin Ratio 0.8 (1.0-1.7) Laboratory Tests Test 01/31/20 11:55 White Blood Count 7.4 x10^3/uL (4.0-11.0) Red Blood Count 4.48 x10^6/uL (3.50-5.40) Hemoglobin 12.6 g/dL (12.0-15.5) Hematocrit 38.2 % (36.0-47.0) Mean Corpuscular Volume 85 fL (79-100) Mean Corpuscular Hemoglobin 28 pg (25-35) Mean Corpuscular Hemoglobin Concent 33 g/dL (31-37) Red Cell Distribution Width 14.8 % (11.5-14.5) Platelet Count 231 x10^3/uL (140-400) Neutrophils (%) (Auto) 73 % (31-73) Lymphocytes (%) (Auto) 15 % (24-48) Monocytes (%) (Auto) 11 % (0-9) Eosinophils (%) (Auto) 1 % (0-3) Basophils (%) (Auto) 0 % (0-3) Neutrophils # (Auto) 5.4 x10^3/uL (1.8-7.7) Lymphocytes # (Auto) 1.1 x10^3/uL (1.0-4.8) Monocytes # (Auto) 0.8 x10^3/uL (0.0-1.1) Eosinophils # (Auto) 0.0 x10^3/uL (0.0-0.7) Basophils # (Auto) 0.0 x10^3/uL (0.0-0.2) Sodium Level 140 mmol/L (136-145) Potassium Level 3.3 mmol/L (3.5-5.1) Chloride Level 104 mmol/L (98-107) Carbon Dioxide Level 29 mmol/L (21-32) Anion Gap 7 (6-14) Blood Urea Nitrogen 14 mg/dL (7-20) Creatinine 0.8 mg/dL (0.6-1.0) Estimated GFR (Cockcroft-Gault) 71.5 BUN/Creatinine Ratio 18 (6-20) Glucose Level 164 mg/dL (70-99) Calcium Level 8.6 mg/dL (8.5-10.1) Total Bilirubin 0.3 mg/dL (0.2-1.0) Aspartate Amino Transf (AST/SGOT) 27 U/L (15-37) Alanine Aminotransferase (ALT/SGPT) 66 U/L (14-59) Alkaline Phosphatase 61 U/L (46-116) Total Protein 6.7 g/dL (6.4-8.2) Albumin 2.9 g/dL (3.4-5.0) Albumin/Globulin Ratio 0.8 (1.0-1.7) Medications Active Scripts Medications Dose Route/Sig Max Daily Dose Days Date Category Tylenol (Acetaminophen) 325 Mg Tablet 650 Mg PO PRN Q6HRS PRN 06/14/14 Rx Impression . IMPRESSION: 1. Acute hypoxemic respiratory failure secondary to COVID-19 viral pneumonia. 2. COVID-19 viral pneumonia, the patient failed outpatient treatment, now hypoxic,stable on 6 litres 3. Abnormal x-ray, possible bacterial pneumonia, gram-positive and gram-negative. 4. Morbid obesity. 5. History of sarcoid. 6. Obstructive sleep apnea. 7. Fever secondary to above. Plan . Continue supplemental oxygen to keep oxygen saturations greater than 92%, currently on 10 L Follow chest x-ray--ongoing bilateral patchy infiltrates, improvement of aeration in the left lower lung base Echocardiogram in 2014 showed an EF of 60%, will order repeat echo, x1 Lasix today Continue steroids with slow taper will need full 10-day course Has completed a full course of remdesivir Continue antibiotic therapy, currently on Rocephin and doxy Continue vitamin supplementation vitamin C and zinc DVT/GI prophylaxis Physical therapy/Occupational Therapy Discussed with KAILASH PAYTON MD Feb 01, 2020 10:07
[2020-02-01 11:00] VITALS: BP 157/74
[2020-02-01] MEDS ORDERED: FUROSEMIDE 40 MG/4 ML VIAL. IVP ONE (11:00)
--- NOTE | 2020-02-01 13:05 | NUR ---
TIGIST following for discharge planning. Spoke with RN and reviewed chart. Pt not ready for discharge today as she is on 9l 02. Spoke with Marli from [facility]. Pt has been accepted for services upon discharge. Update to Neel with [facility]. SW following.
--- NOTE | 2020-02-01 13:15 | RAD ---
EXAM: AP View of the chest DATE: 02/01/2020 12:00 AM INDICATION: covid pneumonia COMPARISON: 01/29/2020 01/27/2020 FINDINGS/ IMPRESSION: Cardiomediastinal silhouette is stable accounting for patient rotation. Predominantly peripheral and basilar bilateral parenchymal opacities are essentially unchanged. Trace left pleural effusion. No pneumothorax. Electronically signed by: Nishant Pena MD (02/01/2020 1:12 PM) [facility]
[2020-02-01 15:00] VITALS: BP 144/72
[2020-02-01 19:58] VITALS: BP 156/77
[2020-02-01] MEDS: diphenhydrAMINE HCL 25 MG CAPSULE PO PRN (21:03)
[2020-02-01] MEDS: ACETAMINOPHEN 325 MG TABLET. PO PRN (21:04)
[2020-02-01 23:03] VITALS: BP 144/77
[2020-02-02 03:36] VITALS: BP 134/77
[2020-02-02 07:10] VITALS: BP 163/70
[2020-02-02] MEDS: IPRATROPIUM/ALBUTEROL 20/100mcg/INH INHALER. INH SCH ×4 (08:00→20:00)
[2020-02-02] MEDS: ZINC SULFATE 220 MG CAPSULE. PO SCH (08:28)
[2020-02-02] MEDS: LACTOBACILLUS RHAMNOSUS GG 1 CAPSULE. PO SCH ×2 (08:28→21:08)
[2020-02-02] MEDS: DOXYCYCLINE HYCLATE 100 MG TABLET PO SCH ×2 (08:28→21:05)
[2020-02-02] MEDS: DEXAMETHASONE 4 MG TABLET PO SCH (08:28)
[2020-02-02] MEDS: ASCORBIC ACID 1,000 MG TABLET PO SCH ×3 (08:28→21:08)
[2020-02-02] MEDS: ENOXAPARIN 40 MG/0.4 ML SYRINGE. SQ SCH ×2 (08:29→21:06)
[2020-02-02] MEDS: cefTRIAXone IV Push 1 GM VIAL. IVP SCH (08:31)
--- NOTE | 2020-02-02 10:37 | PDOC ---
PULMONARY PROGRESS NOTES DATE: 02/02/20 TIME: 10:35 Subjective Patient reports that she is feeling better today continues to have nonproductive cough Requiring more oxygen today, currently on 19 L nasal cannula No other concerns from nursing Vitals Vital Signs Date Time Temp Pulse Resp B/P (MAP) Pulse Ox O2 Delivery O2 Flow Rate FiO2 02/02/20 08:25 Nasal Cannula 9.0 02/02/20 07:10 97.9 83 18 163/70 (101) 97 97.9 Comments alert rrr no paradoxical abd motion no rash ROS: No Nausea, No Chest Pain, No Abdominal Pain, No Increase Cough Labs Laboratory Tests Test 01/31/20 11:55 White Blood Count 7.4 x10^3/uL (4.0-11.0) Red Blood Count 4.48 x10^6/uL (3.50-5.40) Hemoglobin 12.6 g/dL (12.0-15.5) Hematocrit 38.2 % (36.0-47.0) Mean Corpuscular Volume 85 fL (79-100) Mean Corpuscular Hemoglobin 28 pg (25-35) Mean Corpuscular Hemoglobin Concent 33 g/dL (31-37) Red Cell Distribution Width 14.8 % (11.5-14.5) Platelet Count 231 x10^3/uL (140-400) Neutrophils (%) (Auto) 73 % (31-73) Lymphocytes (%) (Auto) 15 % (24-48) Monocytes (%) (Auto) 11 % (0-9) Eosinophils (%) (Auto) 1 % (0-3) Basophils (%) (Auto) 0 % (0-3) Neutrophils # (Auto) 5.4 x10^3/uL (1.8-7.7) Lymphocytes # (Auto) 1.1 x10^3/uL (1.0-4.8) Monocytes # (Auto) 0.8 x10^3/uL (0.0-1.1) Eosinophils # (Auto) 0.0 x10^3/uL (0.0-0.7) Basophils # (Auto) 0.0 x10^3/uL (0.0-0.2) Sodium Level 140 mmol/L (136-145) Potassium Level 3.3 mmol/L (3.5-5.1) Chloride Level 104 mmol/L (98-107) Carbon Dioxide Level 29 mmol/L (21-32) Anion Gap 7 (6-14) Blood Urea Nitrogen 14 mg/dL (7-20) Creatinine 0.8 mg/dL (0.6-1.0) Estimated GFR (Cockcroft-Gault) 71.5 BUN/Creatinine Ratio 18 (6-20) Glucose Level 164 mg/dL (70-99) Calcium Level 8.6 mg/dL (8.5-10.1) Total Bilirubin 0.3 mg/dL (0.2-1.0) Aspartate Amino Transf (AST/SGOT) 27 U/L (15-37) Alanine Aminotransferase (ALT/SGPT) 66 U/L (14-59) Alkaline Phosphatase 61 U/L (46-116) Total Protein 6.7 g/dL (6.4-8.2) Albumin 2.9 g/dL (3.4-5.0) Albumin/Globulin Ratio 0.8 (1.0-1.7) Medications Active Scripts Medications Dose Route/Sig Max Daily Dose Days Date Category Tylenol (Acetaminophen) 325 Mg Tablet 650 Mg PO PRN Q6HRS PRN 06/14/14 Rx Impression . IMPRESSION: 1. Acute hypoxemic respiratory failure secondary to COVID-19 viral pneumonia. 2. COVID-19 viral pneumonia, the patient failed outpatient treatment, now hypoxic,stable on 6 litres 3. Abnormal x-ray, possible bacterial pneumonia, gram-positive and gram-negative. 4. Morbid obesity. 5. History of sarcoid. 6. Obstructive sleep apnea. 7. Fever secondary to above. Plan . Continue supplemental oxygen to keep oxygen saturations greater than 92%, currently on 9 L Follow chest x-ray Echocardiogram in 2014 showed an EF of 60%, await repeat echo results Continue steroids with slow taper will need full 10-day course Has completed a full course of remdesivir Continue antibiotic therapy, currently on Rocephin and doxy Continue vitamin supplementation vitamin C and zinc DVT/GI prophylaxis Physical therapy/Occupational Therapy Discussed with RN Dispo: Social work not working with home health and sleep care for possible discharge, will need repeat 6-minute walk prior to discharge KAILASH ROBERTSON MD Feb 02, 2020 10:37
[2020-02-02 11:01] VITALS: BP 140/74
[2020-02-02 11:03] LABS: CALCIUM 9.8 mg/dL (8.5-10.1); CREATININE 0.8 mg/dL (0.6-1.0); GFR 71.5; POTASSIUM 3.6 mmol/L (3.5-5.1)
[2020-02-02 15:10] VITALS: BP 150/75
--- NOTE | 2020-02-02 15:10 | PDOC ---
PROGRESS NOTES Date of Service: DATE: 02/02/20 TIME: 15:08 Subjective Subjective feels better today Objective Objective Vital Signs Date Time Temp Pulse Resp B/P (MAP) Pulse Ox O2 Delivery O2 Flow Rate FiO2 02/02/20 11:01 98.0 87 18 140/74 (96) 98 Nasal Cannula 9.0 98.0 Intake and Output 02/02/20 07:00 Intake Total 1350 ml Balance 1350 ml Intake Oral 1350 ml # Voids 4 Physical Exam Heart: Regular rate, Normal S1, Normal S2 Extremities: No clubbing General: Alert HEENT: Atraumatic Lungs: Other (crackles at bases) Neck: Supple Neuro: Normal speech Psych/Mental Status: Mental status NL Skin: No breakdown Diagnosis Problem List Problems Medical Problems: (1) Community acquired pneumonia Status: Acute (2) Coronavirus infection Status: Acute Assessment Assessment Problems Medical Problems: (1) Community acquired pneumonia Status: Acute (2) Coronavirus infection Status: Acute FINAL IMPRESSION: 1. COVID pneumonia. 2. Recent COVID infection. 3. Sarcoidosis. 4. Sleep apnea. 5. Obesity, BMI 38. 6. Arthritis. PLAN: d/c home with home health cxr no change on 10 L oxygen for home use home health completed Remdesivir +dexamethasone . Lovenox for DVT prevention. doxyxycline+dexamethasone for home for 1 week Plan Plan of Care Problems Medical Problems: (1) Community acquired pneumonia Status: Acute (2) Coronavirus infection Status: Acute Comment Review of Relevant I have reviewed the following items dion (where applicable) has been applied. Labs Laboratory Tests Test 02/02/20 09:47 D-Dimer (Aide) 0.58 ug/mlFEU (0.00-0.50) Sodium Level 139 mmol/L (136-145) Potassium Level 3.6 mmol/L (3.5-5.1) Chloride Level 102 mmol/L (98-107) Carbon Dioxide Level 28 mmol/L (21-32) Anion Gap 9 (6-14) Blood Urea Nitrogen 18 mg/dL (7-20) Creatinine 0.8 mg/dL (0.6-1.0) Estimated GFR (Cockcroft-Gault) 71.5 Glucose Level 205 mg/dL (70-99) Calcium Level 9.8 mg/dL (8.5-10.1) Medications Current Medications Dexamethasone (Decadron) 4 mg DAILYWBKFT PO ; Start 02/03/20 at 08:00 Vitals/I & O Vital Sign - Last 24 Hours 02/01/20 02/01/20 02/01/20 02/01/20 19:58 20:00 20:00 23:03 Temp 98.6 98.3 98.6 98.3 Pulse 94 81 Resp 16 16 B/P (MAP) 156/77 (103) 144/77 (99) Pulse Ox 90 92 O2 Delivery Nasal Cannula Nasal Cannula Nasal Cannula Nasal Cannula O2 Flow Rate 9.0 9.0 9.0 9.0 02/02/20 02/02/20 02/02/20 02/02/20 03:36 07:10 08:25 11:01 Temp 98.5 97.9 98.0 98.5 97.9 98.0 Pulse 74 83 87 Resp 16 18 18 B/P (MAP) 134/77 (96) 163/70 (101) 140/74 (96) Pulse Ox 93 97 98 O2 Delivery Nasal Cannula Nasal Cannula Nasal Cannula Nasal Cannula O2 Flow Rate 9.0 9.0 9.0 9.0 Intake and Output 02/01/20 02/01/20 02/02/20 15:00 23:00 07:00 Intake Total 740 ml 250 ml 360 ml Balance 740 ml 250 ml 360 ml Justifications for Admission Other Justification WALDO KUMAR MD Feb 02, 2020 15:10
[2020-02-02] MEDS ORDERED: DOXY100T PO (15:13)
[2020-02-02] MEDS ORDERED: DEXA4TAB63 PO (15:13)
--- NOTE | 2020-02-02 15:16 | SNU/HH DC ---
DISCHARGE WITH HOME HEALTH DISCHARGE INFORMATION: Discharge Date: Feb 02, 2020 Final Diagnosis: Problems Medical Problems: (1) Community acquired pneumonia Status: Acute (2) Coronavirus infection Status: Acute Condition on Discharge: Stable CODE STATUS: Code Status: Full HOME HEALTH: Face to Face: I certify this patient is under my care and that I, or a nurse practitioner or physician's mental health assistant working with me, had a face to face encounter that meets the physician face to face encounter requirements with this patient on []. Medical Complications: Pneumonia RN For Eval/Treatment: Yes Physical Therapy For: Evalulation/Treatment SURGERY NURSE For: Community Resources Pt Meets Homebound Status: Extreme weakness w/ amb. POST DISCHARGE ORDERS: Activity Instructions for Disc: Activity as tolerated DIET AFTER DISCHARGE: Low Sodium 2 gm TREATMENT/EQUIPMENT ORDERS: Discharge Respiratory Equipmen: Oxygen CERTIFICATION STATEMENT: Certification Statement: Certification Statement: Based on the above finding, I certify that this patient is confined to the home and needs intermittent care home care, physical therapy and/or speech therapy, or continues to need occupational therapy.~ This patient is under my care, and I have initiated the establishment of the plan of care.~ This patient will be followed by myself or a community physician who will periodically review the plan of care. Home Meds Active Scripts Dexamethasone (Decadron) 4 Mg Tablet, 4 MG PO DAILYWBKFT for steroid for 7 Days, #7 TAB Prov:WALDO KUMAR MD 02/02/20 Doxycycline Hyclate (DOXYCYCLINE HYCLATE) 100 Mg Tablet, 100 MG PO BID for pneumonia for 7 Days, #14 TAB Prov:WALDO KUMAR MD 02/02/20 Acetaminophen (TYLENOL) 325 Mg Tablet, 650 MG PO PRN Q6HRS PRN for PAIN / TEMP, #60 TAB Prov:SALINA TATUM BRIDGE WELDER 06/14/14 WALDO KUMAR MD Feb 02, 2020 15:16
--- NOTE | 2020-02-02 15:30 | NUR ---
Message left for TIGIST Gil re: d/c orders. Art, RT paged re: status of repeat 6 min. walk.
--- NOTE | 2020-02-02 15:53 | NUR ---
Message left for TIGIST Gil re: d/c planning for home O2 and RT for status of repeat 6 min. walk.
--- NOTE | 2020-02-02 16:06 | NUR ---
TIGIST Gil delivered O2 tank for pt to take home. Spoke with RT Nilam, she stated she would look into status of repeat 6 min. walk.
--- NOTE | 2020-02-02 16:51 | NUR ---
Dr. Doss paged re: 6 min walk result. Per Nilam RT.
--- NOTE | 2020-02-02 17:38 | NUR ---
SW following for discharge planning. Spoke with RN and reviewed chart. Pt to discharge home today. 6 min walk results back. 02 script and results faxed to [facility]. 02 tank provided to pt for transportation home. Pt to call the number on the tank upon arrival home for home 02 setup. HH orders faxed to [facility]. No further SW needs at this time.
[2020-02-02 19:00] VITALS: BP 158/84
[2020-02-02 23:00] VITALS: BP 155/74
[2020-02-02] MEDS: diphenhydrAMINE HCL 25 MG CAPSULE PO PRN (23:16)
--- NOTE | 2020-02-03 01:00 | NUR ---
ASSUMED CARE OF HI FROM DAY SHIFT PT RESTING IN BED TALKING ON PHONE DENIES SOA AT THIS TIME , ASSESSMENT COMPLETED, SAT 88% AT 9L , INCREASED 02 TO 10L NC STA 92 % . PT SCHEDULED FOR CT BABS THIS EVENING ATTEMPT TO PLACE A AC IV ,UNSUCCESSFUL X2 PT STATES SHE DOES NOT WANT GO THROUGH THIS , DUE ED ATEMPTED X5 TO PLACE A IV. DR DORMAN NOTIFIED OF PT STATUS AND RESCHEDULED OF CT TO . PT REQUESTED [facility]NA[facility] FOR SLEEP .WILL CONTINUE WITH CURRENT PLAN OF CARE
[2020-02-03 03:00] VITALS: BP 148/70
[2020-02-03 07:00] VITALS: BP 147/70
[2020-02-03] MEDS ORDERED: DEXAMETHASONE 4 MG TABLET PO SCH (08:00)
--- NOTE | 2020-02-03 09:09 | PDOC ---
PROGRESS NOTES Date of Service: DATE: 02/03/20 TIME: 09:09 Subjective Subjective feels better today Objective Objective Vital Signs Date Time Temp Pulse Resp B/P (MAP) Pulse Ox O2 Delivery O2 Flow Rate FiO2 02/03/20 03:00 98.0 80 18 148/70 (96) 93 Nasal Cannula 9.0 98.0 Intake and Output 02/03/20 07:00 Intake Total 300 ml Balance 300 ml Intake Oral 300 ml # Voids 3 Physical Exam Heart: Regular rate, Normal S1, Normal S2 Extremities: No clubbing General: Alert HEENT: Atraumatic Lungs: Other (crackles at bases) Neck: Supple Neuro: Normal speech Psych/Mental Status: Mental status NL Skin: No breakdown Diagnosis Problem List Problems Medical Problems: (1) Community acquired pneumonia Status: Acute (2) Coronavirus infection Status: Acute Assessment Assessment Problems Medical Problems: (1) Community acquired pneumonia Status: Acute (2) Coronavirus infection Status: Acute FINAL IMPRESSION: 1. COVID pneumonia. 2. Recent COVID infection. 3. Sarcoidosis. 4. Sleep apnea. 5. Obesity, BMI 38. 6. Arthritis. PLAN: d/c home with home health , pt refusing to go to rehab. cxr no change, d dimer not elevated, hold off on CT chest on 9-10 L oxygen for home use spoke with Pulmonary and social sciences chair completed Remdesivir +dexamethasone . Lovenox for DVT prevention. doxyxycline+dexamethasone for home for 1 week Plan Plan of Care Problems Medical Problems: (1) Community acquired pneumonia Status: Acute (2) Coronavirus infection Status: Acute Comment Review of Relevant I have reviewed the following items dion (where applicable) has been applied. Labs Laboratory Tests Test 02/02/20 09:47 D-Dimer (Aide) 0.58 ug/mlFEU (0.00-0.50) Sodium Level 139 mmol/L (136-145) Potassium Level 3.6 mmol/L (3.5-5.1) Chloride Level 102 mmol/L (98-107) Carbon Dioxide Level 28 mmol/L (21-32) Anion Gap 9 (6-14) Blood Urea Nitrogen 18 mg/dL (7-20) Creatinine 0.8 mg/dL (0.6-1.0) Estimated GFR (Cockcroft-Gault) 71.5 Glucose Level 205 mg/dL (70-99) Calcium Level 9.8 mg/dL (8.5-10.1) Medications Current Medications Dexamethasone (Decadron) 4 mg DAILYWBKFT PO ; Start 02/03/20 at 08:00 Vitals/I & O Vital Sign - Last 24 Hours 02/02/20 02/02/20 02/02/20 02/02/20 11:01 15:10 19:00 20:00 Temp 98.0 98.5 98.6 98.0 98.5 98.6 Pulse 87 97 97 Resp 18 18 18 B/P (MAP) 140/74 (96) 150/75 (100) 158/84 (108) Pulse Ox 98 91 90 O2 Delivery Nasal Cannula Nasal Cannula Nasal Cannula Nasal Cannula O2 Flow Rate 9.0 9.0 9.0 10.0 02/02/20 02/03/20 23:00 03:00 Temp 97.8 98.0 97.8 98.0 Pulse 84 80 Resp 18 18 B/P (MAP) 155/74 (101) 148/70 (96) Pulse Ox 93 93 O2 Delivery Nasal Cannula Nasal Cannula O2 Flow Rate 9.0 9.0 Intake and Output 02/02/20 02/02/20 02/03/20 15:00 23:00 07:00 Intake Total 120 ml 180 ml Balance 120 ml 180 ml Justifications for Admission Other Justification WALDO KUMAR MD Feb 03, 2020 09:09
[2020-02-03] MEDS: LACTOBACILLUS RHAMNOSUS GG 1 CAPSULE. PO SCH (09:17)
[2020-02-03] MEDS: ZINC SULFATE 220 MG CAPSULE. PO SCH (09:17)
[2020-02-03] MEDS: DOXYCYCLINE HYCLATE 100 MG TABLET PO SCH (09:17)
[2020-02-03] MEDS: cefTRIAXone IV Push 1 GM VIAL. IVP SCH (09:18)
[2020-02-03] MEDS: ASCORBIC ACID 1,000 MG TABLET PO SCH (09:22)
[2020-02-03 11:00] VITALS: BP 160/76
--- NOTE | 2020-02-03 11:12 | PDOC ---
PULMONARY PROGRESS NOTES DATE: 02/03/20 TIME: 11:09 Subjective Patient remains on 9 L nasal cannula Significant hypoxia with 6-minute walk No other concerns from nursing Vitals Vital Signs Date Time Temp Pulse Resp B/P (MAP) Pulse Ox O2 Delivery O2 Flow Rate FiO2 02/03/20 07:00 98.1 91 20 147/70 (95) 20 Nasal Cannula 9.0 98.1 Comments alert rrr no paradoxical abd motion no rash ROS: No Nausea, No Chest Pain, No Abdominal Pain, No Increase Cough Labs Laboratory Tests Test 02/02/20 09:47 D-Dimer (Aide) 0.58 ug/mlFEU (0.00-0.50) Sodium Level 139 mmol/L (136-145) Potassium Level 3.6 mmol/L (3.5-5.1) Chloride Level 102 mmol/L (98-107) Carbon Dioxide Level 28 mmol/L (21-32) Anion Gap 9 (6-14) Blood Urea Nitrogen 18 mg/dL (7-20) Creatinine 0.8 mg/dL (0.6-1.0) Estimated GFR (Cockcroft-Gault) 71.5 Glucose Level 205 mg/dL (70-99) Calcium Level 9.8 mg/dL (8.5-10.1) Medications Active Scripts Medications Dose Route/Sig Max Daily Dose Days Date Category Tylenol (Acetaminophen) 325 Mg Tablet 650 Mg PO PRN Q6HRS PRN 06/14/14 Rx Impression . IMPRESSION: 1. Acute hypoxemic respiratory failure secondary to COVID-19 viral pneumonia. 2. COVID-19 viral pneumonia, the patient failed outpatient treatment, now hypoxic,stable on 9 litres 3. Abnormal x-ray, possible bacterial pneumonia, gram-positive and gram-negative. 4. Morbid obesity. 5. History of sarcoid. 6. Obstructive sleep apnea. 7. Fever secondary to above. Plan . Continue supplemental oxygen to keep oxygen saturations greater than 92%, currently on 9 L Follow chest x-ray No need for CT of chest Echocardiogram in 2014 showed an EF of 60%, await repeat echo results Continue steroids with slow taper will need full 10-day course Has completed a full course of remdesivir Continue antibiotic therapy, currently on Rocephin and doxy Continue vitamin supplementation vitamin C and zinc DVT/GI prophylaxis Physical therapy/Occupational Therapy Discussed with RN Dispo: Social work following for DC placement may require inpatient rehab secondary to increased oxygen requirements KAILASH ROBERTSON MD Feb 03, 2020 11:12
[2020-02-03] MEDS: ENOXAPARIN 40 MG/0.4 ML SYRINGE. SQ SCH (12:45)
--- NOTE | 2020-02-03 13:15 | NUR ---
SW following for discharge planning. Spoke with RN and reviewed chart. Discharge held yesterday per SOB and failed 6 [address]. Spoke with Dr. Doss who stated pt can discharge home with and home 02 once approved by pulmonary. SW requested another 6 min walk as script indicated 6l 02 at rest and 10l with activity. Updates to [facility] and [facility] with Declan. SW following. Addendum: 02/03/20 at 1423 by JODI ESCOTO Pt to discharge with home 02 with current script for 6l 02 at rest and 10l 02 with activity per RN. Pt to follow up with pulmonary on discharge. Pt has tank for transportation home and will call [facility] on arrival home for home 02 setup. [facility]el from [facility] verbalized that all clinicals were received. [facility] HH start of care is 02/03 per [place]. No further SW needs at this time.
--- NOTE | 2020-02-03 14:20 | NUR ---
DISCHARGE INSTRUCTIONS GIVEN, QUESTIONS AND CONCERNS ANSWERED, PATIENT VERBALIZED UNDERSTANDING OF DISCHARGE INFORMATION INCLUDING TAKING ALL MEDICATIONS INSTRUCTED AND FOLLOWING UP WITH DR. KUMAR AND DR. ROBERTSON INSTRUCTED, PATIENT GIVEN A PORTABLE OXYGEN TANK FROM [employer] AND ENCOURAGED TO CALL [facility] SOON SHE GETS HOME TO ASSURE THAT SHE GETS THE PROPER OXYGEN TANK AT HOME. ALL PERSONAL BELONGINGS GATHERED BY THE PATIENT AND THIS HIGHWAY TRUCK DRIVER AND PLACED IN BAGS FOR DISCHARGE, SALINE LOCK REMOVED PER THIS HIGHWAY TRUCK DRIVER.
--- NOTE | 2020-02-03 14:50 | NUR ---
PATIENT LEAVES THE UNIT PER W/C AND ACCOMPANIED BY THIS [employer]TON FACTOR SHE DROVE [id number] TO THE HOSPITAL, EMOTIONAL SUPPORT GIVEN, F/U APPOINTMENTS ENCOURAGED.
--- NOTE | 2020-02-06 20:28 | PDOC ---
Provider Note Date of Service: DATE: 02/06/20 TIME: 20:27 Provider Note Discharge summary dictated.#[id number]. Justifications for Admission Other Justification WALDO KUMAR MD Feb 06, 2020 20:28
--- NOTE | 2020-02-06 20:57 | DS ---
DATE OF DISCHARGE: 02/03/2020 REASON FOR ADMISSION TO THE HOSPITAL: COVID pneumonia. CONSULTATION: Dr. Stallworth. PROCEDURES DONE: None. HOSPITAL COURSE: The patient is a 69-year-old female. The patient was sick over Thanks weekend, went to an urgent care center and she was tested for COVID, which was positive. Over the next couple of days, she was having shortness of breath and coughing, she came to the Emergency Room, and the patient was admitted to the hospital on 01/27/2020 with COVID pneumonia. The patient was hypoxic, requiring oxygen. The patient was seen by Pulmonary, Dr. Stallworth, was started on remdesivir and dexamethasone. The patient was requiring close to 9 liters of oxygen and the patient was monitored for 7 days in the hospital and she remained stable. She did not want to go to detention or rehab. She wanted to go home. The patient was discharged on 10 liters of oxygen with home health. She was on Lovenox b.i.d. for DVT prevention, and she was discharged on prednisone for 1 more week and oral doxycycline for 1 more week. FINAL DIAGNOSES: 1. COVID pneumonia. 2. Respiratory failure secondary to COVID pneumonia. 3. History of sarcoidosis. 4. Obesity. DISPOSITION: Home with home health, same discharge medications, and follow up in the office in 1-2 weeks. WALDO KUMAR MD DR: MIGUEL/ayesha JOB#: [id number] / [id number]
== END 2020-02-03 14:50 | disposition home health service (06) | DRG 177 ==
LOC: ER 10:09 → ED HOLD 13:12 → 6 SOUTH 19:40
PROVIDERS: ADMIT Internal Medicine; ATTEND Internal Medicine
PROC: XW033E5 Introduction of Remdesivir Anti-infective into Peripheral Vein, Percutaneous Approach, New Technology Group 5 (ICD-10-PCS; principal; 2020-01-27)
DX: U07.1 COVID-19 (principal); J96.01 Acute respiratory failure with hypoxia; J12.89 Other viral pneumonia; D86.9 Sarcoidosis, unspecified; E66.01 Morbid (severe) obesity due to excess calories; G47.33 Obstructive sleep apnea (adult) (pediatric); M19.90 Unspecified osteoarthritis, unspecified site; Z68.38 Body mass index [BMI] 38.0-38.9, adult; Z82.49 Family history of ischemic heart disease and other diseases of the circulatory system; Z83.3 Family history of diabetes mellitus; Z86.19 Personal history of other infectious and parasitic diseases; Z87.891 Personal history of nicotine dependence; Z90.49 Acquired absence of other specified parts of digestive tract; Z90.710 Acquired absence of both cervix and uterus; Z88.8 Allergy status to other drugs, medicaments and biological substances; Z79.899 Other long term (current) drug therapy
CPT/HCPCS: 36415; 71045; 80048; 80053; 80076; 82550; 83615; 83880; 84484; 85025; 85379; 86140; 93005; 94640; 96374; 96375; J0696; J1100; J1650; J1940; J7030; J7050; 99285-25; G0378; Q0163

== ENCOUNTER → 2020-06-29 | Outpatient (CLI) | payer BC, MEDICARE ==
[~2020-06-29] MED LIST changes: +DEXA4TAB63 PO; +DOXY100T PO
--- NOTE | 2020-06-29 16:58 | RAD ---
EXAM: PA and Lateral Views of the Chest DATE: 06/29/2020 2:02 PM INDICATION: Reason: SARCOIDOSIS. HAD COVID IN DEC/JAN / . Instructions: / History: COMPARISON: No Prior FINDINGS/ IMPRESSION: The heart is not enlarged. Mediastinal and hilar contours are stable. Minimal patchy opacities lung bases, significantly improved when compared to 02/01/2020. Hilar promine nce possibly from clinically described history of sarcoidosis. No pleural effusion or pneumothorax. Electronically signed by: Nishant Pena MD (06/29/2020 4:56 PM) [facility]
== END ==
LOC: RAD 13:35
PROVIDERS: ATTEND Internal Medicine Critical Care Medicine
DX: D86.9 Sarcoidosis, unspecified (principal); Z86.16 Personal history of COVID-19
CPT/HCPCS: 71046